=== PATIENT | male | born 1970 | race Caucasian/White ===

== ENCOUNTER 2017-01-08 15:51 | Outpatient (CLI) | payer MEDICARE, MEDICAID | END 2017-01-08 15:52 | disposition critical access hospital (66) | DX: M25.561 Pain in right knee (principal); W18.30XA Fall on same level, unspecified, initial encounter | CPT/HCPCS: A0425; A0429 ==

== ENCOUNTER 2017-01-08 16:27 | Emergency (ER) | payer MEDICARE, MEDICAID ==
[2017-01-08] MEDS ORDERED: IBUPROFEN 800 MG TABLET PO STA (17:05)
[2017-01-08] MEDS ORDERED: oxyCOD/ACETAMIN 5 MG/325 MG TABLET PO STA (17:05)
[2017-01-08] MEDS ORDERED: oxyCOD/ACETAMIN 5 MG/325 MG TABLET PO ONE ×2 (17:23→17:40)
[2017-01-08] MEDS ORDERED: IBUPROFEN 800 MG TABLET PO ONE (17:24)
== END 2017-01-08 19:30 | disposition home or self-care (01) ==
DX: S80.01XA Contusion of right knee, initial encounter (principal); W01.0XXA Fall on same level from slipping, tripping and stumbling without subsequent striking against object, initial encounter; Y92.488 Other paved roadways as the place of occurrence of the external cause; I10 Essential (primary) hypertension; G47.30 Sleep apnea, unspecified; Z87.442 Personal history of urinary calculi
CPT/HCPCS: 73564; 73590; 99283; 99284; A9270

== ENCOUNTER 2017-05-18 10:39 | Outpatient (CLI) | payer MEDICARE, MEDICAID | END 2017-05-18 10:40 | disposition home or self-care (01) | LOC: SC 10:39 | PROVIDERS: ATTEND Internal Medicine Pulmonary Disease | DX: G47.33 Obstructive sleep apnea (adult) (pediatric) (principal) | CPT/HCPCS: 99213; G0463; 99212 ==

== ENCOUNTER 2017-06-23 10:18 | Outpatient (CLI) | payer MEDICARE, MEDICAID | END 2017-06-23 10:19 | disposition home or self-care (01) | LOC: SC 10:18 | PROVIDERS: ATTEND Internal Medicine Pulmonary Disease | DX: G47.33 Obstructive sleep apnea (adult) (pediatric) (principal) | CPT/HCPCS: 99213; G0463; 99212 ==

== ENCOUNTER 2017-08-06 22:56 | Outpatient (CLI) | payer MEDICARE, MEDICAID | END 2017-08-06 22:57 | disposition home or self-care (01) | LOC: SC 22:56 | PROVIDERS: ATTEND Internal Medicine Pulmonary Disease | DX: G47.33 Obstructive sleep apnea (adult) (pediatric) (principal); G47.61 Periodic limb movement disorder; Z68.42 Body mass index [BMI] 45.0-49.9, adult | CPT/HCPCS: 95811 ==

== ENCOUNTER 2017-08-25 10:26 | Outpatient (CLI) | payer MEDICARE, MEDICAID | END 2017-08-25 10:27 | disposition home or self-care (01) | LOC: SC 10:26 | PROVIDERS: ATTEND Internal Medicine Pulmonary Disease | DX: G47.33 Obstructive sleep apnea (adult) (pediatric) (principal) | CPT/HCPCS: 99213; G0463; 99212 ==

== ENCOUNTER 2017-12-14 13:51 | Outpatient (CLI) | payer MEDICARE, MEDICAID | END 2017-12-14 13:52 | disposition home or self-care (01) | LOC: SC 13:51 | PROVIDERS: ATTEND Internal Medicine Pulmonary Disease | DX: G47.33 Obstructive sleep apnea (adult) (pediatric) (principal) | CPT/HCPCS: 99213; G0463; 99212 ==

== ENCOUNTER 2018-01-25 08:00 | Outpatient (CLI) | payer MEDICARE, MEDICAID ==
[2018-01-25 17:50] LABS: BASOPHILS % (AUTO) 0.4 %; EOSINOPHILS # (AUTO) 0.2 10^3/uL (0.0-0.7); EOSINOPHILS % (AUTO) 2.9 %; HGB - HEMOGLOBIN 16.2 g/dL (14.0-18.0); LYMPHOCYTES # (AUTO) 2.4 10^3/uL (1.5-3.5); LYMPHOCYTES % (AUTO) 29.4 %; MEAN CORPUSCULAR HEMOGLOBIN 28.8 pg (27.0-31.0); MEAN CORPUSCULAR HGB CONC 33.2 g/dL (32.0-36.0); MEAN CORPUSCULAR VOLUME 86.9 fL (80.0-94.0); MEAN PLATELET VOLUME 8.6 fL (7.4-11.4); MONOCYTES # (AUTO) 0.9 10^3/uL (0.0-1.0); MONOCYTES % (AUTO) 10.6 %; NEUTROPHILS # (AUTO) 4.6 10^3/uL (1.5-6.6); NEUTROPHILS % (AUTO) 56.7 %; PLT - PLATELET COUNT 198 10^3/uL (130-450); RED BLOOD COUNT 5.63 10^6/uL (4.70-6.10); RED CELL DISTRIBUTION WIDTH 12.9 % (12.0-15.0); WHITE BLOOD COUNT 8.1 x10^3/uL (4.8-10.8)
[2018-01-25 18:13] LABS: ALBUMIN 4.2 g/dL (3.2-5.5); ALBUMIN/GLOBULIN RATIO 1.3 (1.0-2.2); BILIRUBIN,TOTAL 0.4 mg/dL (0.2-1.0); CALCIUM 8.9 mg/dL (8.5-10.3); CREATININE 0.9 mg/dL (0.6-1.2); TOTAL PROTEIN 7.4 g/dL (6.7-8.2)
== END 2018-01-25 23:59 ==
LOC: LAB.S 08:00
PROVIDERS: ATTEND Nurse Practitioner Family
DX: R10.9 Unspecified abdominal pain (principal)
CPT/HCPCS: 36415; 80053; 85025

== ENCOUNTER 2018-01-27 10:45 | Outpatient (CLI) | payer MEDICARE, MEDICAID | END 2018-01-27 10:46 | disposition home or self-care (01) | LOC: LAB.R 10:45 | PROVIDERS: ATTEND Nurse Practitioner Family | DX: R10.9 Unspecified abdominal pain (principal) | CPT/HCPCS: 83630 ==

== ENCOUNTER 2018-02-04 09:13 | Outpatient (CLI) | payer MEDICARE, MEDICAID ==
--- NOTE | 2018-02-04 11:27 | Ultrasound Report ---
ULTRASOUND ABDOMINAL WALL: 02/04/2018 CLINICAL INDICATION: Abdominal wall pain, question hernia. TECHNIQUE: Real-time scanning was performed with community service representative static images obtained. FINDINGS: At the time of the examination, the patient could not localize the pain, describing it as diffuse throughout his anterior abdominal wall. No hernia is appreciated in scanning of the four quadrants. IMPRESSION: NO EVIDENCE OF ABDOMINAL WALL HERNIA. TD: 02/04/2018 11:26
== END 2018-02-04 09:14 | disposition home or self-care (01) ==
LOC: DI 09:13
PROVIDERS: ATTEND Nurse Practitioner Family
DX: R10.9 Unspecified abdominal pain (principal)
CPT/HCPCS: 76705

== ENCOUNTER 2018-02-19 16:07 | Outpatient (CLI) | payer MEDICARE, MEDICAID | END 2018-02-19 16:08 | disposition short-term general hospital (02) | LOC: EMS 16:07 | PROVIDERS: ATTEND Surgery | DX: R07.9 Chest pain, unspecified (principal); R06.02 Shortness of breath; R42 Dizziness and giddiness | CPT/HCPCS: A0170; A0425; A0427 ==

== ENCOUNTER 2018-06-21 11:23 | Emergency (ER) | payer MEDICARE, MEDICAID ==
--- NOTE | 2018-06-21 13:02 | XRAY Report ---
Reason: hand inj Procedure Date: 06/21/2018 Accession Number: [id number] / [id number] Procedure: XR - Hand 3 View LT CPT Code: FULL RESULT: EXAM: LEFT HAND RADIOGRAPHY EXAM DATE: 06/21/2018 12:46 PM. CLINICAL HISTORY: Hand injury. COMPARISON: HAND 3 VIEW RT 10/19/2014. TECHNIQUE: 3 views. FINDINGS: Bones: Normal. No fractures or bone lesions. Joints: Normal. No subluxations. Soft Tissues: Normal. No soft tissue swelling. IMPRESSION: No fracture or dislocation is identified. RADIA
--- NOTE | 2018-06-21 15:11 | ED Physician Documentation ---
History of Present Illness - Stated complaint Stated Complaint: L THUMB INJ/BACK PX - Chief complaint Chief Complaint: Trauma Ext - History obtained from History obtained from: Patient (using [employer] healthcare interpreter for ASL [id number]) - History of Present Illness Timing: Other (He has 2 issues one he has ongoing back pain for last 2 months. It is a history of low back pain. He points to the left sciatic notch as the source. He denies weakness, numbness, or tingling. He had been in physical therapy which helped quite a bit but the prescription for that ran out. He also has a back brace and needs a new one. Secondly he fell last night injuring the base of the left thumb. He has a lot of pain right at the base of the left thumb. No other injuries from that fall.) Review of Systems Constitutional: denies: Fever, Chills Respiratory: reports: Reviewed and negative GI: reports: Reviewed and negative PD PAST MEDICAL HISTORY - Past Medical History Cardiovascular: Hypertension Respiratory: Sleep apnea, CPAP use Neuro: None Endocrine/Autoimmune: None GI: None : Kidney stones HEENT: Chronic hearing loss Psych: None Musculoskeletal: Chronic back pain, Other Derm: Eczema - Past Surgical History Past Surgical History: Yes General: Cholecystectomy, Other Ortho: Carpal Tunnel surgery HEENT: Myringotomy (tubes) - Present Medications Home Medications: Ambulatory Orders Medication Instructions Recorded Confirmed Ibuprofen [Motrin] 800 mg PO Q8H PRN #30 tablet 01/08/17 Ascorbic Acid [Vitamin C with Malena 1 tab PO DAILY 06/21/18 06/21/18 Hips] Hydrocodone/Acetaminophen 1 - 2 each PO Q6H PRN #14 tablet 06/21/18 [Hydrocodon-Acetaminophen 5-325] Physical Therapy 1 unit TD ONCE #1 06/21/18 - Allergies Allergies/Adverse Reactions: Allergies Allergy/AdvReac Type Severity Reaction Status Date / Time cefaclor [From Ceclor] Allergy Unknown Rash Verified 06/21/18 14:36 codeine [Codeine] Allergy Unknown unknown Verified 06/21/18 14:36 Sulfa (Sulfonamide Allergy Unknown unknown Verified 06/21/18 14:36 Antibiotics) - Social History Does the pt smoke?: No Smoking Status: Never smoker Does the pt drink ETOH?: No Does the pt have substance abuse?: No Substance Use and Type: Marijuana - Immunizations Immunizations are current?: No Immunizations: TDAP >10years/unknown - POLST Patient has POLST: No PD ED PE NORMAL - Vitals Vital signs reviewed: Yes - General General: Alert and oriented X 3, No acute distress - Back Back: No CVA TTP, No spinal TTP (But he is tender near the left sciatic notch), Other (The patient has equal and normal Achilles and patellar reflexes bilaterally. Normal sensation in all areas of the legs. Patient denies saddle anesthesia. Normal strength in flexion-extension at the ankles, knees, and flexion of the hips.) - Extremities Extremities: Other (Tender at the base of the left thumb at the MCP joint. No snuffbox or proximal wrist tenderness. Good range of motion.) - Neuro Neuro: Alert and oriented X 3, Normal speech Results - Vitals Vitals: Vital Signs - 24 hr 06/21/18 11:34 Temperature 35.9 C L Heart Rate 66 Respiratory 18 Rate Blood Pressure 126/65 O2 Saturation 97 Oxygen O2 Source Room air - Rads (name of study) L hand 3v Radiology: EMP read contemporaneously (no frx) PD MEDICAL DECISION MAKING - Sepsis Event Vital Signs: Vital Signs - 24 hr 06/21/18 11:34 Temperature 35.9 C L Heart Rate 66 Respiratory 18 Rate Blood Pressure 126/65 O2 Saturation 97 Oxygen O2 Source Room air Departure - Departure Disposition: 01 Home, Self Care Clinical Impression: Back pain Qualifiers: Back pain location: low back pain Chronicity: chronic Back pain laterality: left Sciatica presence: without sciatica Qualified Code(s): M54.5 - Low back pain; G89.29 - Other chronic pain Left thumb sprain Qualifiers: Encounter type: initial encounter Sprain of finger site: metacarpophalangeal joint Qualified Code(s): S63.642A - Sprain of metacarpophalangeal joint of left thumb, initial encounter Condition: Good Record reviewed to determine appropriate education?: Yes Instructions: ED Neck Back Pain General Follow-Up: Annamaria Gomez ARNP [Primary Care Provider] - Prescriptions: Hydrocodone/Acetaminophen [Hydrocodon-Acetaminophen 5-325] 1 - 2 each PO Q6H PRN #14 tablet PRN Reason: pain Physical Therapy 1 unit TD ONCE #1
[2018-06-21 16:03] VITALS: BP 129/78
== END 2018-06-21 16:02 | disposition home or self-care (01) ==
LOC: ED 11:23
DX: S63.642A Sprain of metacarpophalangeal joint of left thumb, initial encounter (principal); I10 Essential (primary) hypertension; G89.29 Other chronic pain; M54.5 Low back pain; W10.9XXA Fall (on) (from) unspecified stairs and steps, initial encounter
CPT/HCPCS: 99283

== ENCOUNTER 2018-07-18 16:04 | Emergency (ER) | payer MEDICARE, MEDICAID ==
--- NOTE | 2018-07-18 17:14 | ED Physician Documentation ---
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 Pain is radiating to low abd both sides the past 2 weeks as well.) Timing - duration: Weeks (2) Timing - details: Gradual onset, Still present, Waxing and waning Quality: Aching, Pain Location: Other (bilatreral low back radiating around to low abd both sides.) Improved by: Laying still. No: Eating Worsened by: Moving, Position. No: Eating Associated symptoms: No: Fever, Nausea, Vomiting, Diarrhea, Chest pain, Near syncope / syncope, Loss of appetite Similar symptoms before: Has not had sx before Recently seen: Not recently seen Review of Systems Constitutional: denies: Fever, Chills Nose: denies: Rhinorrhea / runny nose, Congestion Throat: denies: Sore throat Cardiac: denies: Chest pain / pressure, Palpitations Respiratory: denies: Cough GI: reports: Abdominal Pain, Abdominal Swelling, Constipation (firm stools). denies: Nausea, Vomiting, Diarrhea : denies: Dysuria, Frequency Skin: denies: Rash PD PAST MEDICAL HISTORY - Past Medical History Past Medical History: Yes Cardiovascular: Hypertension Respiratory: Sleep apnea, CPAP use Neuro: None Endocrine/Autoimmune: None GI: None : Kidney stones HEENT: Chronic hearing loss Psych: None Musculoskeletal: Chronic back pain, Other Derm: Eczema - Past Surgical History Past Surgical History: Yes General: Cholecystectomy, Other Ortho: Carpal Tunnel surgery HEENT: Myringotomy (tubes) - Present Medications Home Medications: Ambulatory Orders Medication Instructions Recorded Confirmed Ibuprofen [Motrin] 800 mg PO Q8H PRN #30 tablet 01/08/17 Ascorbic Acid [Vitamin C with Malena 1 tab PO DAILY 06/21/18 06/21/18 Hips] Hydrocodone/Acetaminophen 1 - 2 each PO Q6H PRN #14 tablet 06/21/18 [Hydrocodon-Acetaminophen 5-325] Physical Therapy 1 unit TD ONCE #1 06/21/18 Dexamethasone [Decadron] 4 mg PO DAILY #5 tablet 07/18/18 Gabapentin 300 mg PO BID #30 capsule 07/18/18 Morphine Ir [Ms Ir] 15 mg PO TID PRN #25 tablet 07/18/18 - Allergies Allergies/Adverse Reactions: Allergies Allergy/AdvReac Type Severity Reaction Status Date / Time cefaclor [From Ceclor] Allergy Unknown Rash Verified 07/18/18 16:52 codeine [Codeine] Allergy Unknown unknown Verified 07/18/18 16:52 Sulfa (Sulfonamide Allergy Unknown unknown Verified 07/18/18 16:52 Antibiotics) - Social History Does the pt smoke?: No Smoking Status: Never smoker Does the pt drink ETOH?: No Does the pt have substance abuse?: No - Immunizations Immunizations are current?: No Immunizations: TDAP >10years/unknown - POLST Patient has POLST: No PD ED PE NORMAL - Vitals Vital signs reviewed: Yes - General General: Alert and oriented X 3, No acute distress, Well developed/nourished - HEENT HEENT: Pharynx benign - Neck Neck: Supple, no meningeal sign, No adenopathy - Cardiac Cardiac: RRR, No murmur - Respiratory Respiratory: Clear bilaterally - Abdomen Abdomen: Normal bowel sounds, Soft, Non distended, No organomegaly, Other (some tender without guarding nor rebound bilateral lower abd. No hernias nor skin sores. ) - Male Male : Deferred - Rectal Rectal: Deferred - Back Back: No CVA TTP - Derm Derm: Normal color, Warm and dry - Extremities Extremities: No tenderness to palpate, Normal ROM s pain, No edema, Other - Neuro Neuro: Alert and oriented X 3, No motor deficit Results - Vitals Vitals: Oxygen O2 Source Room air - Labs Labs: Laboratory Tests 07/18/18 07/18/18 07/18/18 17:30 17:30 17:30 WBC 8.1 RBC 5.52 Hgb 16.8 Hct 48.2 MCV 87.3 MCH 30.4 MCHC 34.8 RDW 13.0 Plt Count 208 MPV 7.9 Neut # (Auto) 5.0 Lymph # (Auto) 2.0 [place] # (Auto) 0.8 Eos # (Auto) 0.2 Baso # (Auto) 0.1 Absolute Nucleated RBC 0.01 Nucleated RBC % 0.2 ESR 1 Sodium 135 Potassium 4.0 Chloride 100 L Carbon Dioxide 29 Anion Gap 6.0 BUN 13 Creatinine 0.8 Estimated GFR (MDRD) 103 Glucose 101 H Calcium 8.9 Total Bilirubin 0.6 AST 30 ALT 46 Alkaline Phosphatase 50 Total Protein 7.3 Albumin 4.1 Globulin 3.2 Albumin/Globulin Ratio 1.3 Lipase 135 H Urine Color Urine Clarity Urine pH Ur Specific [place] Urine Protein Urine Glucose (UA) Urine Ketones Urine Occult Blood Urine Nitrite Urine Bilirubin Urine Urobilinogen Ur Leukocyte Esterase Ur Microscopic Review Urine Culture Comments 07/18/18 17:45 WBC RBC Hgb Hct MCV MCH MCHC RDW Plt Count MPV Neut # (Auto) Lymph # (Auto) [place] # (Auto) Eos # (Auto) Baso # (Auto) Absolute Nucleated RBC Nucleated RBC % ESR Sodium Potassium Chloride Carbon Dioxide Anion Gap BUN Creatinine Estimated GFR (MDRD) Glucose Calcium Total Bilirubin AST ALT Alkaline Phosphatase Total Protein Albumin Globulin Albumin/Globulin Ratio Lipase Urine Color YELLOW Urine Clarity CLEAR Urine pH 6.5 Ur Specific [place] 1.025 Urine Protein NEGATIVE Urine Glucose (UA) NEGATIVE Urine Ketones NEGATIVE Urine Occult Blood NEGATIVE Urine Nitrite NEGATIVE Urine Bilirubin NEGATIVE Urine Urobilinogen 0.2 (NORMAL) Ur Leukocyte Esterase NEGATIVE Ur Microscopic Review NOT INDICATED Urine Culture Comments NOT INDICATED - Rads (name of study) abd CT Radiology: Prelim report reviewed (stones in kidneys; no ureteral stones. No other acute process. Spine bones without noted deformity. ), EMP read contemporaneously PD MEDICAL DECISION MAKING - ED course Complexity details: reviewed results (no acute process on CT; presume musc uloskeletal back pain with some perhaps constipation or intestinal pain. ), re- evaluated patient (improved with pain meds. ), considered differential, d/w patient Departure - Departure Disposition: Home, Self Care Clinical Impression: Lower abdominal pain Low back pain Qualifiers: Chronicity: chronic Back pain laterality: bilateral Sciatica presence: without sciatica Qualified Code(s): M54.5 - Low back pain Condition: Stable Record reviewed to determine appropriate education?: Yes Instructions: ED Low Back Pain Injury Follow-Up: Annamaria Gomez ARNP [Primary Care Provider] - Prescriptions: Dexamethasone [Decadron] 4 mg PO DAILY #5 tablet Gabapentin 300 mg PO BID #30 capsule Morphine Ir [Ms Ir] 15 mg PO TID PRN #25 tablet PRN Reason: Pain Comments: Your CT scan did not show any obvious cause for the back and belly pain. You have some small stones in the kidney but no stones in a position to cause pain. The spine appears normal based on the CT scan. Sometimes an MRI can be better at looking at some of the nerve roots or discs but at this point there is no significant deformity. We will presume its muscular and nerve pain from the back and we can change your pain medicine to morphine 3 times a day and add some anti-inflammatory Decadron for 5 days. Also gabapentin tries to reduce nerve irritation pain and take that twice daily. Follow-up with your primary care next week, call for an appointment. Discharge Date/Time: 07/18/18 20:35
[2018-07-18] MEDS ORDERED: HYDROmorphone 1 MG/ML CARPUJECT IVP STA ×2 (17:15→19:04)
[2018-07-18] MEDS ORDERED: KETOROLAC 60 MG/2 ML VIAL IVP STA (17:16)
[2018-07-18 17:44] LABS: BASOPHILS # (AUTO) 0.1 10^3/uL (0.0-0.1); BASOPHILS % (AUTO) 0.6 %; EOSINOPHILS # (AUTO) 0.2 10^3/uL (0.0-0.7); EOSINOPHILS % (AUTO) 2.3 %; HGB - HEMOGLOBIN 16.8 g/dL (14.0-18.0); LYMPHOCYTES % (AUTO) 25.1 %; MEAN CORPUSCULAR HEMOGLOBIN 30.4 pg (27.0-31.0); MEAN CORPUSCULAR HGB CONC 34.8 g/dL (32.0-36.0); MEAN CORPUSCULAR VOLUME 87.3 fL (80.0-94.0); MEAN PLATELET VOLUME 7.9 fL (7.4-11.4); MONOCYTES # (AUTO) 0.8 10^3/uL (0.0-1.0); MONOCYTES % (AUTO) 10.3 %; NEUTROPHILS % (AUTO) 61.7 %; PLT - PLATELET COUNT 208 10^3/uL (130-450); RED BLOOD COUNT 5.52 10^6/uL (4.70-6.10); WHITE BLOOD COUNT 8.1 x10^3/uL (4.8-10.8)
[2018-07-18 17:57] LABS: ALBUMIN 4.1 g/dL (3.2-5.5); ALBUMIN/GLOBULIN RATIO 1.3 (1.0-2.2); BILIRUBIN,TOTAL 0.6 mg/dL (0.2-1.0); CALCIUM 8.9 mg/dL (8.5-10.3); CREATININE 0.8 mg/dL (0.6-1.2); TOTAL PROTEIN 7.3 g/dL (6.7-8.2)
[2018-07-18 18:00] LABS: BILIRUBIN,URINE NEGATIVE (NEGATIVE); GLUCOSE, URINE (UA) NEGATIVE (NEGATIVE); KETONES,URINE (UA) NEGATIVE (NEGATIVE); LEUKOCYTE ESTERASE, URINE NEGATIVE (NEGATIVE); NITRITE,URINE NEGATIVE (NEGATIVE); OCCULT BLOOD,URINE NEGATIVE (NEGATIVE); PH,URINE 6.5 PH (5.0-7.5); PROTEIN,URINE NEGATIVE (NEGATIVE); UROBILINOGEN,URINE 0.2 (NORMAL) E.U./dL (NORMAL)
[2018-07-18] MEDS ORDERED: IOPAMIDOL-300 100 ML VIAL ONE (18:05)
[2018-07-18 18:08] LABS: CLARITY,URINE CLEAR (CLEAR)
[2018-07-18] MEDS ORDERED: IOPAMIDOL-300 100 ML VIAL IVP ONE (18:44)
[2018-07-18] MEDS ORDERED: DEXAMETHASONE 10 MG/ML VIAL IVP STA (19:04)
--- NOTE | 2018-07-18 19:09 | CT Report ---
Reason: low back/left abd pain Procedure Date: 07/18/2018 Accession Number: [id number] / [id number] Procedure: CT - Abdomen/Pelvis W/ CPT Code: FULL RESULT: EXAM: CT ABDOMEN AND PELVIS EXAM DATE: 07/18/2018 06:32 PM. CLINICAL HISTORY: Low back/left abd pain. COMPARISONS: 100 cc Isovue-300 IV. TECHNIQUE: Routine helical CT imaging was performed through the abdomen and pelvis. IV contrast: 100 cc Isovue-300 IV. Enteric contrast: No. Reconstructions: Coronal and sagittal. In accordance with CT protocol optimization, one or more of the following dose reduction techniques were utilized for this exam: automated exposure control, adjustment of mA and/or KV based on patient size, or use of iterative reconstructive technique. FINDINGS: Lung Bases: Unremarkable. Liver: Liver parenchyma mildly low in density. No focal liver mass. Gallbladder/Bile Ducts: Gallbladder surgically absent. Spleen: Normal. Pancreas: Normal. Adrenal Glands: Normal. Kidneys: There are multiple nonobstructing right kidney stones the largest stone in the upper pole measures 6 mm in diameter. There is no hydronephrosis. No ureter stone. Peritoneal Cavity/Bowel: Normal. No free fluid, free air or adenopathy. No masses or acute inflammatory process. The appendix is well visualized and normal. Pelvic Organs: Normal. The bladder and visualized pelvic organs are within normal limits. Vasculature: No aneurysms or other significant abnormality. Bones: No significant abnormality. Other: None. IMPRESSION: 1. Multiple nonobstructing right kidney stones, largest 6 mm. 2. No localizing acute inflammatory process. 3. Normal appendix. 4. Mild steatosis of the liver. RADIA
[2018-07-18] MEDS ORDERED: oxyCODONE/ACET 5/325 Prepack 4 PO STA (20:01)
[2018-07-18 20:36] VITALS: BP 120/89
== END 2018-07-18 20:35 | disposition home or self-care (01) ==
LOC: ED 16:04
DX: R10.30 Lower abdominal pain, unspecified (principal); M54.5 Low back pain; I10 Essential (primary) hypertension
CPT/HCPCS: 36415; 74177; 80053; 81003; 83690; 85025; 85651; 96374; 96375; 96376; 99283; 99284; J1170; Q9967; 81001; 87086

== ENCOUNTER 2018-10-04 09:49 | Outpatient (CLI) | payer MEDICARE, MEDICAID | END 2018-10-04 09:50 | disposition home or self-care (01) | LOC: SC 09:49 | PROVIDERS: ATTEND Internal Medicine Pulmonary Disease | DX: G47.33 Obstructive sleep apnea (adult) (pediatric) (principal) | CPT/HCPCS: 99213; G0463; 99212 ==

== ENCOUNTER 2018-10-26 16:24 | Emergency (ER) | payer MEDICARE, MEDICAID ==
[2018-10-26] MEDS ORDERED: AMOX/CLAV 875 MG/125 MG TABLET PO STA (17:46)
[2018-10-26] MEDS ORDERED: HYDROcod/ACETAM 5/325 MG TABLET PO STA (17:46)
--- NOTE | 2018-10-26 17:49 | ED Physician Documentation ---
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 He also complains of left ear pain with some bloody drainage. No fevers.) Review of Systems Constitutional: denies: Fever, Chills Ears: reports: Loss of hearing (He is chronically deaf), Ear pain Nose: denies: Rhinorrhea / runny nose Throat: reports: Dental pain / toothache. denies: Sore throat PD PAST MEDICAL HISTORY - Past Medical History Past Medical History: No Cardiovascular: Hypertension Respiratory: Sleep apnea, CPAP use Neuro: None Endocrine/Autoimmune: None GI: None : Kidney stones HEENT: Chronic hearing loss Psych: None Musculoskeletal: Chronic back pain, Other Derm: Eczema - Past Surgical History Past Surgical History: Yes General: Cholecystectomy, Other Ortho: Carpal Tunnel surgery HEENT: Myringotomy (tubes) - Present Medications Home Medications: Ambulatory Orders Medication Instructions Recorded Confirmed Ibuprofen [Motrin] 800 mg PO Q8H PRN #30 tablet 01/08/17 Ascorbic Acid [Vitamin C with Malena 1 tab PO DAILY 06/21/18 06/21/18 Hips] Hydrocodone/Acetaminophen 1 - 2 each PO Q6H PRN #14 tablet 06/21/18 [Hydrocodon-Acetaminophen 5-325] Physical Therapy 1 unit TD ONCE #1 06/21/18 Dexamethasone [Decadron] 4 mg PO DAILY #5 tablet 07/18/18 Gabapentin 300 mg PO BID #30 capsule 07/18/18 Morphine Ir [Ms Ir] 15 mg PO TID PRN #25 tablet 07/18/18 Amox/Clav 875/125 [Augmentin] 1 each PO Q12H #20 tablet 09/11/18 Oxycodone HCl/Acetaminophen 1 - 2 each PO Q6H PRN #14 tablet 09/11/18 [Percocet 5-325 mg Tablet] carBAMazepine [TEGretol] 100 mg PO BID #20 tablet 09/11/18 Amox/Clav 875/125 [Augmentin] 1 each PO Q12H #20 tablet 10/26/18 Hydrocodone/Acetaminophen 1 - 2 each PO Q6H PRN #20 tablet 10/26/18 [Hydrocodon-Acetaminophen 5-325] - Allergies Allergies/Adverse Reactions: Allergies Allergy/AdvReac Type Severity Reaction Status Date / Time cefaclor [From Ceclor] Allergy Unknown Rash Verified 07/18/18 16:52 codeine [Codeine] Allergy Unknown unknown Verified 07/18/18 16:52 Sulfa (Sulfonamide Allergy Unknown unknown Verified 07/18/18 16:52 Antibiotics) - Social History Does the pt smoke?: No Smoking Status: Never smoker Does the pt drink ETOH?: No Does the pt have substance abuse?: No - Immunizations Immunizations are current?: No Immunizations: TDAP >10years/unknown - POLST Patient has POLST: No PD ED PE NORMAL - Vitals Vital signs reviewed: Yes - General General: Alert and oriented X 3, No acute distress - HEENT HEENT: Other (Bilateral otitis media which is severe on the left. He has a tender left mandibular premolar without swelling or trismus or sublingual edema.) - Neck Neck: Supple, no meningeal sign, No bony TTP - Neuro Neuro: Alert and oriented X 3, Normal speech Results - Vitals Vitals: Vital Signs - 24 hr 10/26/18 16:30 Temperature 36 C L Heart Rate 73 Respiratory 18 Rate Blood Pressure 163/89 H O2 Saturation 96 Oxygen O2 Source Room air Departure - Departure Disposition: 01 Home, Self Care Clinical Impression: Dental abscess Bilateral otitis media Qualifiers: Otitis media type: suppurative Chronicity: acute Recurrence: not specified as recurrent Spontaneous tympanic membrane rupture: without spontaneous rupture Qualified Code(s): H66.003 - Acute suppurative otitis media without spontaneous rupture of ear drum, bilateral Condition: Good Record reviewed to determine appropriate education?: Yes Instructions: ED Otitis Media Acute Adult, ED Cavity Dental Prescriptions: Amox/Clav 875/125 [Augmentin] 1 each PO Q12H #20 tablet Hydrocodone/Acetaminophen [Hydrocodon-Acetaminophen 5-325] 1 - 2 each PO Q6H PRN #20 tablet PRN Reason: pain Comments: Follow-up with your dentist as scheduled. Return if worse. Also follow-up with your primary care physician in 1 week for recheck on your ears. Your blood pressure was elevated today on check into the emergency department. This does not mean that you have hypertension, it is a common phenomenon to come to the emergency department and have elevated blood pressure. I recommend that you see your primary care physician within the week to have it rechecked when you are feeling better. Do not drink or drive while taking narcotic pain medication. Note that many narcotic pain relievers also contain Tylenol/acetaminophen. Please ensure that your total dose of acetaminophen from all sources does not exceed 3 g (3000 mg) per day. You may get constipated while on this medication. Take a stool softener such as Colace twice a day while you are on it. Also add an [id number] laxative such as senna or MiraLAX on any day that you do not have a bowel movement. If you received a narcotic pain medication or sedative while in the emergency department, do not drive for the next 24 hours.
[2018-10-26 18:11] VITALS: BP 146/98
== END 2018-10-26 18:12 | disposition home or self-care (01) ==
LOC: ED 16:24
DX: K04.7 Periapical abscess without sinus (principal); H66.003 Acute suppurative otitis media without spontaneous rupture of ear drum, bilateral; I10 Essential (primary) hypertension
CPT/HCPCS: 99283; A9270

== ENCOUNTER 2019-01-09 15:38 | Emergency (ER) | payer MEDICARE, MEDICAID ==
[2019-01-09 15:50] VITALS: BP 149/75
--- NOTE | 2019-01-09 16:17 | ED Physician Documentation ---
PD HPI SKIN - Stated complaint Stated Complaint: SKIN TAG ON NECK - Chief complaint Chief Complaint: Wound - History obtained from History obtained from: Patient - History of Present Illness Timing - onset: Yesterday Timing - duration: Days (2) Timing - details: Gradual onset, Still present (worse today) Location: Neck (left neck with swelling, redness, tenderness of prior residential skin tag. Onset yesterday and worse today.) Quality / character: Painful, Discolored (red), Swelling. No: Draining Associated symptoms: No: Fever, Myalgias Similar symptoms before: Has not had sx before Review of Systems Constitutional: denies: Fever, Chills, Myalgias GI: denies: Nausea, Vomiting Skin: denies: Rash PD PAST MEDICAL HISTORY - Past Medical History Cardiovascular: Hypertension Respiratory: Sleep apnea, CPAP use Neuro: None Endocrine/Autoimmune: None GI: None : Kidney stones HEENT: Chronic hearing loss Psych: None Musculoskeletal: Chronic back pain, Other Derm: Eczema - Past Surgical History Past Surgical History: Yes General: Cholecystectomy, Other Ortho: Carpal Tunnel surgery HEENT: Myringotomy (tubes) - Present Medications Home Medications: Ambulatory Orders Medication Instructions Recorded Confirmed Ibuprofen [Motrin] 800 mg PO Q8H PRN #30 tablet 01/08/17 Ascorbic Acid [Vitamin C with Malena 1 tab PO DAILY 06/21/18 06/21/18 Hips] Hydrocodone/Acetaminophen 1 - 2 each PO Q6H PRN #14 tablet 06/21/18 [Hydrocodon-Acetaminophen 5-325] Physical Therapy 1 unit TD ONCE #1 06/21/18 Dexamethasone [Decadron] 4 mg PO DAILY #5 tablet 07/18/18 Gabapentin 300 mg PO BID #30 capsule 07/18/18 Morphine Ir [Ms Ir] 15 mg PO TID PRN #25 tablet 07/18/18 Amox/Clav 875/125 [Augmentin] 1 each PO Q12H #20 tablet 09/11/18 Oxycodone HCl/Acetaminophen 1 - 2 each PO Q6H PRN #14 tablet 09/11/18 [Percocet 5-325 mg Tablet] carBAMazepine [TEGretol] 100 mg PO BID #20 tablet 09/11/18 Amox/Clav 875/125 [Augmentin] 1 each PO Q12H #20 tablet 10/26/18 Hydrocodone/Acetaminophen 1 - 2 each PO Q6H PRN #20 tablet 10/26/18 [Hydrocodon-Acetaminophen 5-325] Doxycycline Hyclate 100 mg PO BID #10 capsule 01/09/19 Mupirocin 1 applic TP TID #15 g 01/09/19 - Allergies Allergies/Adverse Reactions: Allergies Allergy/AdvReac Type Severity Reaction Status Date / Time cefaclor [From Ceclor] Allergy Unknown Rash Verified 01/09/19 15:50 codeine [Codeine] Allergy Unknown unknown Verified 01/09/19 15:50 Sulfa (Sulfonamide Allergy Unknown unknown Verified 01/09/19 15:50 Antibiotics) - Social History Does the pt smoke?: No Smoking Status: Never smoker Does the pt drink ETOH?: No Does the pt have substance abuse?: No - Immunizations Immunizations are current?: No Immunizations: TDAP >10years/unknown - POLST Patient has POLST: No PD ED PE NORMAL - Vitals Vital signs reviewed: Yes - General General: Alert and oriented X 3, No acute distress, Well developed/nourished - Neck Neck: Supple, no meningeal sign, No adenopathy - Derm Derm: Normal color, Warm and dry, Other (patient with many small skin tags around sides and back of neck. Left side of neck with a single one that is swollen to size of 1.5 cm with redness, tenderness, and slight redness at base. There is some hair near base of it, so may have originated as hair strangulation of it, but appears infected now as well. No purulence. ) Results - Vitals Vitals: Vital Signs - 24 hr 01/09/19 15:49 Temperature 36.7 C Heart Rate 81 Respiratory 17 Rate Blood Pressure 149/75 H O2 Saturation 99 Oxygen O2 Source Room air Procedures - General procedure General procedure: Swollen/tender skin tag without any melanotic color changes. Local lido 1% with epi used around base and scalpel used to make ellipse along skin line and tag removed. Skin closed with 5-0 nylon running suture with good closure. PD MEDICAL DECISION MAKING - ED course Complexity details: considered differential (swollen and tender skin tag left neck, with apparent hair around base but also with redness extending proximal to that too, so appears infected. Most direct method seems removal and patient prefers that. The lesion was excised without problems. ), d/w patient Departure - Departure Disposition: 01 Home, Self Care Clinical Impression: Skin tag, Skin infection Condition: Stable Record reviewed to determine appropriate education?: Yes Prescriptions: Doxycycline Hyclate 100 mg PO BID #10 capsule Mupirocin 1 applic TP TID #15 g Comments: It is okay to wash and shower. Clean off the wound twice a day with soap and water, or peroxide and water. Apply some antibiotic ointment to it to keep it moist. Also to watch for signs of infection such as purulence, redness or increasing pain. Return to your primary care or the ER at the specified time for suture removal. Suture removal 8-10 days. This looks like an infected skin tag. Removing it gets rid of the main problem. Will use some antibiotics topically and orally for concern of some infection at the base of it. Discharge Date/Time: 01/09/19 17:12
[2019-01-09] MEDS ORDERED: MUPIROCIN 2% OINT 1 GM TOP STA (17:03)
[2019-01-09] MEDS ORDERED: DOXYCYCLINE 100 MG TABLET PO STA (17:03)
== END 2019-01-09 17:12 | disposition home or self-care (01) ==
LOC: ED 15:38
DX: L91.8 Other hypertrophic disorders of the skin (principal); L08.9 Local infection of the skin and subcutaneous tissue, unspecified; I10 Essential (primary) hypertension
CPT/HCPCS: 11200; 99283; A9270

== ENCOUNTER → 2019-04-28 | Outpatient (CLI) | payer MEDICARE, MEDICAID | LOC: SC 19:30 | PROVIDERS: ATTEND Internal Medicine Pulmonary Disease | DX: G47.33 Obstructive sleep apnea (adult) (pediatric) (principal) | CPT/HCPCS: 95806 ==

== ENCOUNTER 2019-05-20 12:07 | Emergency (ER) | payer MEDICARE, MEDICAID ==
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
[2019-05-20] MEDS: oxyCODONE 5 MG TABLET PO STA ×2 (14:26→14:36)
[2019-05-20] MEDS ORDERED: oxyCODONE 5 MG TABLET PO STA (14:32)
[2019-05-20 15:40] LABS: BILIRUBIN,URINE NEGATIVE (NEGATIVE); GLUCOSE, URINE (UA) NEGATIVE (NEGATIVE); KETONES,URINE (UA) NEGATIVE (NEGATIVE); LEUKOCYTE ESTERASE, URINE NEGATIVE (NEGATIVE); NITRITE,URINE NEGATIVE (NEGATIVE); OCCULT BLOOD,URINE NEGATIVE (NEGATIVE); PROTEIN,URINE NEGATIVE (NEGATIVE); UROBILINOGEN,URINE 0.2 (NORMAL) E.U./dL (NORMAL)
[2019-05-20 15:45] LABS: CLARITY,URINE CLEAR (CLEAR)
--- NOTE | 2019-05-20 16:01 | XRAY Report ---
Reason: dyspnea Procedure Date: 05/20/2019 Accession Number: [id number] / [id number] Procedure: XR - Chest 2 View X-Ray CPT Code: 34829 FULL RESULT: EXAM: CHEST RADIOGRAPHY EXAM DATE: 05/20/2019 03:46 PM. CLINICAL HISTORY: Dyspnea. COMPARISON: 04/24/2014 2:05 PM. TECHNIQUE: 2 views. FINDINGS: Lateral view is motion degraded. LUNGS: The lungs are clear. PLEURA: No significant pleural effusion. No clinically significant pneumothorax. MEDIASTINUM: The cardiomediastinal silhouette is unremarkable. BONES: No displaced acute fracture. No suspicious osseous lesions. IMPRESSION: No acute disease within the limits of the study. RADIA
[2019-05-20 16:14] VITALS: BP 136/80
== END 2019-05-20 16:13 | disposition home or self-care (01) ==
LOC: ED 12:07
DX: M54.5 Low back pain (principal); I10 Essential (primary) hypertension
CPT/HCPCS: 71046; 81003; 99283; 99284; A9270; 81001; 87086

== ENCOUNTER 2019-07-04 15:03 | Outpatient (CLI) | payer MEDICARE, MEDICAID ==
--- NOTE | 2019-07-04 16:09 | SLEEP CARE CONSULTATION ---
Information from patient questionnaire entered by Jayla Lozano. I have reviewed and concur with the information entered by Jayla Lozano. This document represents the service I personally performed and the decisions made by me, Thomas Duncan MD, [facility]. History of Present Illness Previous diagnosis: Severe, Obstructive Sleep Apnea-Hypopnea Syndrome AHI: 43.2 Reason for CPAP/BiPAP follow up: first compliance, annual, with sleep study Equipment type: CPAP Equipment obtained from: [facility] Prior sleep studies: Yes Year and Where: [facility] HPI additional information: HPI: Mr. Alanis returned today for follow up of nasal CPAP therapy. The clinic visit was conducted with an online manager automotive. He was diagnosed to have severe obstructive sleep apnea-hypopnea syndrome. [facility] He complains that nobody is sending him supplies. He reports using the device nightly and all through the night. He wears the Respironics Nuance nasal pillows. The compliance report shows usage in 28 nights out of the past 30 nights, averaging 7.6 hours a night. He complained of no particular problem with the device such as soreness on the face, dry nose, epistaxis, nasal congestion or headache. He thinks that the pressure of 18/12 cmH2O is too low. On the BiPAP therapy he notices improvement in his sleep quality, and that he wakes up feeling fresher in the morning and more awake/alert during the day. The [place] Sleepiness Scale score 4. The average residual AHI is 7.9; and air leak, 20.7 L/min. CPAP Compliance Data - Data Reviewed with Patient Average duration of nightly device use: 7h 36m Compliance rate %: 90 Current pressure setting (cmH2O): 18/12 Subjective Patient concerns: reports: dry mouth, nose, throat, other (not a good seel for mask) Initial [place] Sleepiness Scale score: 4 Allergies and Home Medications Drug allergies reviewed: Yes Home medication list reviewed: Yes Review of Systems Review of systems same as previous: Yes Impression and Plan IMPRESSION: 1. Obstructive Sleep Apnea-Hypopnea Syndrome, severe, with the patient doing well on nasal CPAP therapy. He has good compliance and significant clinical improvement. The current pressure appears slightly ineffective. The reason for him not getting supplies is that he was considered non-compliant in 2010 when his first machine was ordered. Therefore, another sleep study had to be done. With recent home sleep apnea test (HSAT), he should be able to start getting supplies again from [facility]. Because the residual AHI is still elevated and the patient feels that the pressure is too low, I will raise it to 20/14 cmH2O. PLAN: 1. Increase BiPAP to 20/14 cmH2O. 2. New prescription made for BiPAP and supplies. 3. Return for follow up in a year or earlier if there is any problem. I spent 100% of this 15 minute visit face to face with the patient with greater than 50% of this was spent time counseling the patient and coordination of care.
== END 2019-07-04 15:04 | disposition home or self-care (01) ==
LOC: SC 15:03
PROVIDERS: ATTEND Internal Medicine Pulmonary Disease
DX: G47.33 Obstructive sleep apnea (adult) (pediatric) (principal)
CPT/HCPCS: 99212; 99213

== ENCOUNTER 2019-11-01 14:25 | Outpatient (CLI) | payer MEDICARE, MEDICAID ==
--- NOTE | 2019-11-01 22:45 | SLEEP CARE CONSULTATION ---
Information from patient questionnaire entered by Jayla Lozano. I have reviewed and concur with the information entered by Jayla Lozano. This document represents the service I personally performed and the decisions made by me, Thomas Duncan MD, [facility]. History of Present Illness Previous diagnosis: Severe, Obstructive Sleep Apnea-Hypopnea Syndrome AHI: 43.2 Reason for follow up: first compliance Equipment type: CPAP Equipment obtained from: [employer] Prior sleep studies: Yes HPI additional information: HPI: Mr. Alanis returned today for follow up of BiPAP therapy. The clinic visit was conducted with an online court interpreter. He was diagnosed to have severe obstructive sleep apnea-hypopnea syndrome. The patient recently acquired a new BiPAP from [employer]. He reports using the device nightly and all through the night. He wears the Respironics Nuance nasal pillows. The compliance report shows usage in 30 nights out of the past 30 nights, averaging 5.7 hours a night. He complained of dry mouth. He already has the heated humidifier set at maximum. He thinks that the pressure of 20/14 cmH2O is comfortable (raised from 18/12 cmH2O for elevated residual AHI of 7.9). On the BiPAP therapy he notices improvement in his sleep quality, and that he wakes up feeling fresher in the morning and more awake/alert during the day. The [place] Sleepiness Scale score 5. The average residual AHI is now 14.1 (most of the residual respiratory events are hypopneas); and air leak, 20.7 L/min. Subjective Patient concerns: reports: dry mouth, nose, throat (*nose) Current pressure setting perceived as: comfortable Initial [place] Sleepiness Scale score: 4 Current [place] Sleepiness Scale score: 5 Allergies and Home Medications Drug allergies reviewed: Yes Home medication list reviewed: Yes Review of Systems Review of systems same as previous: Yes Physical Exam Height: 6 ft Weight: 365 lb Body Mass Index: 49.5 BMI Classification: Obesity Class 3 Impression and Plan IMPRESSION: 1. Obstructive Sleep Apnea-Hypopnea Syndrome, severe, with the patient doing well on nasal CPAP therapy. He has good compliance and significant clinical improvement. The current high pressure appears less effective. I will try lower pressure setting at 16/10 cmH2O. This should help to reduce air leak. We may have to raise it back up if he feels like he is not getting enough air. PLAN: 1. Lower BiPAP to 16/10 cmH2O. 2. Get new filters from the durable medical supplier. 3. Return for follow up in two months to recheck the residual AHI and air leak numbers. I spent 100% of this visit face to face with the patient with greater than 50% of this was spent time counseling the patient and coordination of care.
== END 2019-11-01 14:26 | disposition home or self-care (01) ==
LOC: SC 14:25
PROVIDERS: ATTEND Internal Medicine Pulmonary Disease
DX: G47.33 Obstructive sleep apnea (adult) (pediatric) (principal); E66.9 Obesity, unspecified; Z68.42 Body mass index [BMI] 45.0-49.9, adult
CPT/HCPCS: 99213; G0463; 99212

== ENCOUNTER 2020-04-03 14:57 | Outpatient (CLI) | payer MEDICARE, MEDICAID ==
--- NOTE | 2020-04-03 16:32 | SLEEP CARE CONSULTATION ---
Information from patient questionnaire entered by Cheryl Hyatt. I have reviewed and concur with the information entered by Cheryl Hyatt. This document represents the service I personally performed and the decisions made by me, Thomas Duncan MD, [facility]. History of Present Illness Service Date and Time: 04/03/2020 8583 Previous diagnosis: Severe, Obstructive Sleep Apnea-Hypopnea Syndrome AHI: 43.2 (in 2019)(34.4 in 2010) Reason for follow up: other (5 month ) Equipment type: BiPAP Equipment obtained from: [employer] Mask style: Nasal pillows Mask brand: Respironics Prior sleep studies: Yes Year and Where: 2018 - [facility] ([place]) Type of Sleep Study: Home sleep study HPI additional information: Mr. Alanis came in with his mother for a follow up of the BiPAP therapy. An online instructional design consultant was also utilized. On his last visit in October, I lowered the pressure from 18/12 to 16/10 cmH2O to help reduce air leak. The patient says that the pressure remains comfortable but anything less will probably be uncomfortable. He wears nasal pillows. The residual AHI remains about the same at 15.4 (was 14.7). He still has large air leak of 2 hours a night. Overall, he is comfortable. CPAP Compliance Data - Data Reviewed with Patient Average duration of nightly device use: 6.5 Compliance rate %: 98.9 (90 days) Current pressure setting (cmH2O): 16/10 Humidity settin Heated hose settin Average residual AHI: 15.4 Average large leak: 2 hr 2 min 33 sec Subjective Initial [place] Sleepiness Scale score: 13 (in 2010) Allergies and Home Medications Drug allergies reviewed: Yes Home medication list reviewed: Yes Physical Exam Vital signs obtained and entered by: Due to the COVID-19 pandemic, detailed physicial exam was not performed. Height: 6 ft Weight: 337 lb Body Mass Index: 45.7 BMI Classification: Morbidly Obese Impression and Plan IMPRESSION: 1. Obstructive Sleep Apnea-Hypopnea Syndrome, severe, with the patient doing well on nasal CPAP therapy. He has good compliance and significant clinical improvement. I will leave the BiPAP at 16/10 cmH2O. We have tried to adjust the pressure up and down but the residual AHI remains about the same. PLAN: 1. Leave BiPAP at 16/10 cmH2O. 2. Try to lose weight. 3. Return for follow up in a year or earlier if there is any problem. Visit Type: In Office Time Spent with Patient (minutes): 15 Provider Statement: I spent 100% of the Face to Face Visit with the patient with greater than 50% spent counseling the patient and coordination of care.
== END 2020-04-03 14:58 | disposition home or self-care (01) ==
LOC: SC 14:57
PROVIDERS: ATTEND Internal Medicine Pulmonary Disease
DX: G47.33 Obstructive sleep apnea (adult) (pediatric) (principal); E66.01 Morbid (severe) obesity due to excess calories; Z68.42 Body mass index [BMI] 45.0-49.9, adult
CPT/HCPCS: 99213; G0463; 99212

== ENCOUNTER 2020-05-25 08:00 | Outpatient (CLI) | payer MEDICARE, MEDICAID ==
--- NOTE | 2020-05-25 16:24 | XRAY Report ---
PROCEDURE: Shoulder 2 View BILAT INDICATIONS: BILATERAL SHOULDER PAIN, LIFTING INJ TECHNIQUE: 2 views of the shoulder were acquired. COMPARISON: None. FINDINGS: Bones: No fractures or dislocations. No suspicious bony lesions. Visualized ribs appear intact. M oderate bilateral acromioclavicular degenerative narrowing. Minimal periarticular osteophytes are pre sent. Glenohumeral joint space is slightly narrowed on the right. Soft tissues: No suspicious soft tissue calcifications. IMPRESSION: Moderate bilateral acromioclavicular degenerative narrowing as above. Reviewed by: Manuela Frautso MD on 05/25/2020 4:22 PM PDT Approved by: Manuela Frausto MD on 05/25/2020 4:22 PM PDT Station ID: [id number]
== END 2020-05-25 23:59 | disposition home or self-care (01) ==
LOC: DI.S 08:00
PROVIDERS: ATTEND Physician Assistant Medical
DX: M19.012 Primary osteoarthritis, left shoulder (principal); M19.011 Primary osteoarthritis, right shoulder

== ENCOUNTER 2020-08-13 07:40 | Outpatient (CLI) | payer MEDICARE, MEDICAID ==
[2020-08-13 15:49] LABS: BASOPHILS % (AUTO) 0.5 %; EOSINOPHILS # (AUTO) 0.2 10^3/uL (0.0-0.7); EOSINOPHILS % (AUTO) 2.1 %; HGB - HEMOGLOBIN 17.4 g/dL (14.0-18.0); LYMPHOCYTES # (AUTO) 1.9 10^3/uL (1.5-3.5); MEAN CORPUSCULAR HEMOGLOBIN 30.7 pg (27.0-31.0); MEAN CORPUSCULAR HGB CONC 34.1 g/dL (32.0-36.0); MEAN CORPUSCULAR VOLUME 90.1 fL (80.0-94.0); MEAN PLATELET VOLUME 10.2 fL (7.4-11.4); MONOCYTES # (AUTO) 0.7 10^3/uL (0.0-1.0); MONOCYTES % (AUTO) 8.3 %; NEUTROPHILS # (AUTO) 5.3 10^3/uL (1.5-6.6); NEUTROPHILS % (AUTO) 65.6 %; PLT - PLATELET COUNT 228 10^3/uL (130-450); RED BLOOD COUNT 5.67 10^6/uL (4.70-6.10); RED CELL DISTRIBUTION WIDTH 12.8 % (12.0-15.0); WHITE BLOOD COUNT 8.1 x10^3/uL (4.8-10.8)
[2020-08-13 16:14] LABS: ALBUMIN 4.2 g/dL (3.2-5.5); ALBUMIN/GLOBULIN RATIO 1.2 (1.0-2.2); ALKALINE PHOSPHATASE 53 IU/L (42-121); ALT ALANINE AMINOTRANSFERASE 45 IU/L (10-60); AST ASPARTATE AMINOTRANSFERASE 26 IU/L (10-42); BUN - BLOOD UREA NITROGEN 16 mg/dL (6-20); CARBON DIOXIDE - CO2 25 mmol/L (21-32); CHLORIDE 101 mmol/L (101-111); CHOL/HDL RATIO 4.9 (<5.0); CHOLESTEROL 151 mg/dL; CREATININE 0.9 mg/dL (0.6-1.2); GLUCOSE 129 mg/dL (70-100); HDL CHOLESTEROL 31 mg/dL; LDL CHOLESTEROL,CALCULATED 96 mg/dL; LDL/HDL RATIO 3.1 (<3.6); SODIUM 135 mmol/L (135-145); TOTAL PROTEIN 7.7 g/dL (6.7-8.2); VLDL CHOLESTEROL 24 mg/dL
== END 2020-08-13 07:41 | disposition home or self-care (01) ==
LOC: LAB.S 07:40
PROVIDERS: ATTEND Physician Assistant
DX: Z00.00 Encounter for general adult medical examination without abnormal findings (principal); Z79.899 Other long term (current) drug therapy; E66.01 Morbid (severe) obesity due to excess calories; G47.33 Obstructive sleep apnea (adult) (pediatric); Z72.51 High risk heterosexual behavior
CPT/HCPCS: 36415; 80053; 80061; 81599; 83721; 84443; 85025; 86592; 87389

== ENCOUNTER 2020-11-26 13:11 | Outpatient (CLI) | payer MEDICARE, MEDICAID ==
--- NOTE | 2020-11-26 15:26 | XRAY Report ---
PROCEDURE: Shoulder 3 View LT INDICATIONS: LEFT SHOULDER PAIN TECHNIQUE: 3 views of the shoulder were acquired. COMPARISON: None. FINDINGS: No fracture. Scattered subchondral sclerosis and spurring. Soft tissues: No suspicious soft tissue calcifications. IMPRESSION: Mild degenerative changes. If the patient's pain or other symptoms persist, consider fur ther evaluation with MRI. No fracture identified. Reviewed by: Sid Richards MD on 11/26/2020 3:25 PM [facility] Approved by: Sid Richards MD on 11/26/2020 3:25 PM [facility] Station ID: [id number]
== END 2020-11-26 23:59 | disposition home or self-care (01) ==
LOC: DI.S 13:11
PROVIDERS: ATTEND Physician Assistant
DX: M25.512 Pain in left shoulder (principal); M19.012 Primary osteoarthritis, left shoulder

== ENCOUNTER 2021-01-25 11:34 | Outpatient (CLI) | payer MEDICARE, MEDICAID ==
--- NOTE | 2021-01-25 12:51 | XRAY Report ---
PROCEDURE: Wrist 3 View LT INDICATIONS: WRIST PAIN, LEFT TECHNIQUE: 3 views of the wrist were acquired. COMPARISON: None FINDINGS: Bones: No acute fractures or dislocations. No suspicious bony lesions. Soft tissues: Small corticated calcification adjacent to proximal triquetrum and may represent old he aled injury.. IMPRESSION: No acute wrist fracture or dislocation. Possible old injury involving ulnar aspect of left wrist with small corticated calcification adjacent to proximal triquetrum. Reviewed by: Matias Quinones MD on 01/25/2021 12:50 PM PDT Approved by: Matias Quinones MD on 01/25/2021 12:50 PM PDT Station ID: [id number]
--- NOTE | 2021-01-25 12:53 | XRAY Report ---
PROCEDURE: Shoulder 2 View LT INDICATIONS: SHULDER IMPINGEMENT SYNDROME,LEFT TECHNIQUE: 3 views of the shoulder were acquired. COMPARISON: 11/26/2020, 05/25/2020. FINDINGS: Bones: No fractures or dislocations. Moderate acromioclavicular joint osteoarthritis and mild gleno humeral joint osteoarthritis is seen. No suspicious bony lesions. Visualized ribs appear intact. Soft tissues: No suspicious soft tissue calcifications. IMPRESSION: Mild to moderate left shoulder joint osteoarthritis. No fracture or dislocation. No laurita s soft tissue abnormality. Reviewed by: Matias Quinones MD on 01/25/2021 12:51 PM PDT Approved by: Matias Quinones MD on 01/25/2021 12:51 PM PDT Station ID: [id number]
== END 2021-01-25 11:35 | disposition home or self-care (01) ==
LOC: DI.S 11:34
PROVIDERS: ATTEND Physician Assistant
DX: M25.532 Pain in left wrist (principal); M19.012 Primary osteoarthritis, left shoulder

== ENCOUNTER 2021-02-19 10:18 | Emergency (ER) | payer MEDICARE, MEDICAID ==
[2021-02-19] MEDS ORDERED: SODIUM CHLORIDE 0.9% 1,000 ML IV STA (11:06)
[2021-02-19] MEDS ORDERED: MORPHINE 2 MG/ML CARPUJECT IVP STA (11:06)
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
[2021-02-19 11:28] LABS: BASOPHILS # (AUTO) 0.1 10^3/uL (0.0-0.1); BASOPHILS % (AUTO) 0.8 %; EOSINOPHILS # (AUTO) 0.3 10^3/uL (0.0-0.7); EOSINOPHILS % (AUTO) 3.7 %; HCT - HEMATOCRIT 48.6 % (42.0-52.0); HGB - HEMOGLOBIN 16.5 g/dL (14.0-18.0); MEAN CORPUSCULAR HEMOGLOBIN 30.2 pg (27.0-31.0); MEAN PLATELET VOLUME 9.8 fL (7.4-11.4); MONOCYTES # (AUTO) 0.7 10^3/uL (0.0-1.0); MONOCYTES % (AUTO) 7.8 %; NEUTROPHILS # (AUTO) 5.6 10^3/uL (1.5-6.6); NEUTROPHILS % (AUTO) 64.2 %; PLT - PLATELET COUNT 208 10^3/uL (130-450); RED BLOOD COUNT 5.46 10^6/uL (4.70-6.10); RED CELL DISTRIBUTION WIDTH 12.4 % (12.0-15.0); WHITE BLOOD COUNT 8.6 x10^3/uL (4.8-10.8)
[2021-02-19 11:44] LABS: ALBUMIN 4.2 g/dL (3.2-5.5); ALBUMIN/GLOBULIN RATIO 1.2 (1.0-2.2); BILIRUBIN,TOTAL 0.6 mg/dL (0.2-1.0); CALCIUM 9.2 mg/dL (8.5-10.3); TOTAL PROTEIN 7.6 g/dL (6.7-8.2)
[2021-02-19] MEDS ORDERED: IOPAMIDOL-300 50 ML VIAL ONE (11:49)
--- NOTE | 2021-02-19 12:02 | XRAY Report ---
PROCEDURE: Chest 1 View X-Ray INDICATIONS: R lateral lower rib pain TECHNIQUE: One view of the chest was acquired. COMPARISON: 03/07/2014 FINDINGS: Surgical changes and devices: None. Lungs and pleura: No pleural effusions or pneumothorax. Lungs are clear. Mediastinum: Mediastinal contours appear normal. Heart size is normal. Bones and chest wall: No suspicious bony lesions. Overlying soft tissues appear unremarkable. IMPRESSION: No acute cardiopulmonary process. Reviewed by: Matias Quinones MD on 02/19/2021 12:01 PM PDT Approved by: Matias Quinones MD on 02/19/2021 12:01 PM PDT Station ID: [id number]
[2021-02-19] MEDS ORDERED: IOVERSOL 320 100 ML VIAL IVP ONE ×2 (12:38→16:14)
--- NOTE | 2021-02-19 12:43 | CT Report ---
PROCEDURE: Abdomen/Pelvis W INDICATIONS: Abdominal pain, acute, nonlocalized CONTRAST: IV CONTRAST: Isovue 300 ml: 100 PO CONTRAST: *NO PO CONTRAST TECHNIQUE: After the administration of intravenous contrast, 5 mm thick sections acquired from the diaphragms to the symphysis. 5 mm thick coronal and sagittal reformats were acquired. For radiation dose reducti on, the following was used: automated exposure control, adjustment of mA and/or kV according to anjelica ent size. COMPARISON: 07/18/2018 FINDINGS: Lower thorax: The lung bases are clear. Heart size normal. No hiatal hernia. Liver: Liver shows diffusely decreased attenuation without focal mass lesion. Biliary system: Cholecystectomy. Pancreas: Unremarkable without mass or inflammation evident. Spleen: Normal in size and density. Adrenals: Normal morphology and density. Reproductive system: Unremarkable as visualized. Urinary system: Normal renal size and attenuation. Nonobstructive right renal calculi are again note d, largest 4 mm. Inferior pole calculus on the prior exam has resolved in the interval. No hydronephr osis or hydroureter. Gastrointestinal system: The bowel appears unremarkable with no evidence of bowel obstruction or inf lammation. The stomach appears unremarkable. Appendix: No findings to suggest acute appendicitis. Normal appendix identified. Peritoneal spaces: No mesenteric or retroperitoneal adenopathy. No free air. No free fluid. Vasculature: The IVC, aorta and iliac vasculature are unremarkable. Musculoskeletal: Normal bone mineralization. No acute fractures. Abdominal wall intact without shalom dence of ventral or inguinal hernias. IMPRESSION: No acute CT abdomen or pelvic findings. Right renal nonobstructive calculi are improved in number compared to the prior. No hydronephrosis. Cholecystectomy. Reviewed by: Gómez Shetty MD on 02/19/2021 11:42 AM PRAVEEN Approved by: Gómez Shetty MD on 02/19/2021 11:42 AM PRAVEEN Station ID: [id number]
[2021-02-19] MEDS ORDERED: KETOROLAC 30 MG/ML VIAL IVP STA (13:44)
--- NOTE | 2021-02-19 13:47 | CT Report ---
PROCEDURE: ANGIO CHEST W/WO INDICATIONS: elevated d-dimer CONTRAST: IV CONTRAST: Optiray 320 ml: 80 PO CONTRAST: *NO PO CONTRAST TECHNIQUE: After the administration of intravenous contrast, 2 mm thick sections acquired from the pulmonary api arelis to the posterior costophrenic angles. 3-dimensional maximum intensity projection (MIP) coronal a nd sagittal reformats were then acquired through the thorax. For radiation dose reduction, the follow ing was used: automated exposure control, adjustment of mA and/or kV according to patient size. COMPARISON: Chest x-ray 02/19/2021, CT chest 03/08/2014 FINDINGS: Image quality: Injection is suboptimal for evaluation of emboli distal to the main pulmonary artery. Pulmonary arteries: Pulmonary arteries are normal in size, and demonstrate no intraluminal filling d efects to suggest central pulmonary embolism. Lungs and pleura: Lungs are clear. No pleural effusions or pneumothorax. Central and peripheral ai rways are patent. Mediastinum: Heart size is normal, without pericardial effusion. No mediastinal or hilar adenopathy . Thoracic aorta is normal in caliber and enhancement. Esophagus is normal in caliber, without hiat al hernia. Bones and chest wall: No suspicious bony lesions. Ribs and thoracic spine appear intact throughout. No axillary or supraclavicular adenopathy. The thyroid is normal in size and there are no incident al findings. Abdomen: Hepatic steatosis is present. Otherwise, visualized upper abdominal solid organs appear norm al in the early arterial phase of enhancement. IMPRESSION: 1. No central pulmonary embolism. Segmental branches are unable to be evaluated secondary to contrast opacification. 2. Lungs are clear. Reviewed by: Manuela Frausto MD on 02/19/2021 1:45 PM PDT Approved by: Manuela Frausto MD on 02/19/2021 1:45 PM PDT Station ID: [id number]
[2021-02-19 13:53] LABS: BILIRUBIN,URINE NEGATIVE (NEGATIVE); GLUCOSE, URINE (UA) NEGATIVE (NEGATIVE); KETONES,URINE (UA) NEGATIVE (NEGATIVE); LEUKOCYTE ESTERASE, URINE NEGATIVE (NEGATIVE); NITRITE,URINE NEGATIVE (NEGATIVE); OCCULT BLOOD,URINE NEGATIVE (NEGATIVE); PROTEIN,URINE NEGATIVE (NEGATIVE); UROBILINOGEN,URINE 0.2 (NORMAL) E.U./dL (NORMAL)
[2021-02-19 13:54] LABS: CLARITY,URINE CLEAR (CLEAR)
[2021-02-19 14:25] VITALS: BP 157/91
--- NOTE | 2021-02-20 11:49 | ED Physician Documentation ---
ED Addendum - Addendum Addendum: In brief patient was signed out to me by my dayshift colleague Dr. Johnston. He presents emergency department for evaluation of right flank and low back pain. This is in the setting of a history of chronic low back pain. He had pending CT of the abdomen as well as CT angio of the chest ordered secondary to reported pleuritic chest pain and an elevated D-dimer. CT of the chest did not show any pulmonary embolus. A CT of the abdomen did show nonobstructing nephroliths. Following appropriate analgesia in the emergency department patient's symptoms were markedly improved. Using an river guide I was able to convey the final readings of the CAT scan as well as the diagnosis and impression for this patient. A limited prescription for narcotics was written I am prescribing a short course of short-acting opioid pain medication for this patient. I have reviewed the patients PIPE FITTER MAINTENANCE and no concerning findings were noted. I have discussed that the opioids are for short term therapy only, and will not be refilled from the ED. Final Impression: Low back pain acute on chronic Right flank pain Right nephrolithiasis without obstruction 02/20/21 11:47
== END 2021-02-19 14:33 | disposition home or self-care (01) ==
LOC: ED 10:18
DX: N20.0 Calculus of kidney (principal); M54.5 Low back pain; G89.29 Other chronic pain; I10 Essential (primary) hypertension; E66.01 Morbid (severe) obesity due to excess calories
CPT/HCPCS: 36415; 71045; 71275; 74177; 80053; 81003; 83690; 85025; 85379; 96361; 96374; 96375; 99284; Q9967; 81001; 87086

== ENCOUNTER 2021-03-18 10:58 | Outpatient (CLI) | payer MEDICARE, MEDICAID ==
--- NOTE | 2021-03-18 12:18 | SLEEP CARE CONSULTATION ---
Information from patient questionnaire entered by Cheryl Hyatt. I have reviewed and concur with the information entered by Cheryl Hyatt. This document represents the service I personally performed and the decisions made by me, Thomas Duncan MD, [facility] [place]. History of Present Illness Service Date and Time: 03/18/2021 1058 Previous diagnosis: Severe, Obstructive Sleep Apnea-Hypopnea Syndrome AHI: 43.2 (in 2019)(34.4 in 2010) Reason for follow up: annual (last seen 03/2020) Equipment type: BiPAP Equipment obtained from: [employer] Mask style: Nasal pillows Prior sleep studies: Yes Year and Where: 2018 - [facility] 2010 ([place]) HPI additional information: HPI: Mr. Alanis returned today for follow up of BiPAP therapy. The clinic visit was conducted with an online educational interpreter. He was diagnosed to have severe obstructive sleep apnea-hypopnea syndrome. The patient gets his supplies from [employer]. He continues to use the device nightly and all through the night. He wears the [employer] nasal pillows. The compliance report shows usage in 177 nights out of the past 180 nights, averaging 6.4 hours a night. He complained of dry mouth. He already has the heated humidifier set at maximum. He thinks that the pressure of 16/10 cmH2O is comfortable (lowered from 20/14 cmH2O last year). On the BiPAP therapy he notices improvement in his sleep quality, and that he wakes up feeling fresher in the morning and more awake/alert during the day. The [place] Sleepiness Scale score 2 (was 5). The average residual AHI is now 12.3 (was 14 last year); and average time in large leak per day is 1.9 hours. CPAP Compliance Data - Data Reviewed with Patient Average duration of nightly device use: 6 hr 25 min Compliance rate %: 96.1 (180 days) Current pressure setting (cmH2O): 16/10 Humidity settin Heated hose settin Average residual AHI: 12.3 Average large leak: 1 hr 52 min Subjective Current pressure setting perceived as: comfortable Initial [place] Sleepiness Scale score: 13 (in 2010) Current [place] Sleepiness Scale score: 2 Allergies and Home Medications Drug allergies reviewed: Yes Home medication list reviewed: Yes Review of Systems Review of systems same as previous: Yes Physical Exam Height: 5 ft 11 in Weight: 386 lb Weight change since last visit: +20 lbs Body Mass Index: 53.8 BMI Classification: Morbidly Obese Impression and Plan IMPRESSION: 1. Obstructive Sleep Apnea-Hypopnea Syndrome, severe, with the patient doing well on BiPAP therapy. He has good compliance and significant clinical improvement. The current high pressure appears just as effective as the higher setting. No adjustment is necessary today. PLAN: 1. Leave BiPAP at 16/10 cmH2O. 2. Try to lose weight. 3. Return for follow up in a year or earlier if there is any problem. Follow up recommended for: Weight management Visit Type: In Office Time Spent with Patient (minutes): 15 Provider Statement: I spent 100% of the Face to Face Visit with the patient with greater than 50% spent counseling the patient and coordination of care.
== END 2021-03-18 10:59 | disposition home or self-care (01) ==
LOC: SC 10:58
PROVIDERS: ATTEND Internal Medicine Pulmonary Disease
DX: G47.33 Obstructive sleep apnea (adult) (pediatric) (principal); E66.01 Morbid (severe) obesity due to excess calories; Z68.43 Body mass index [BMI] 50.0-59.9, adult
CPT/HCPCS: 99212; G0463

== ENCOUNTER 2021-06-13 14:30 | Outpatient (CLI) | payer MEDICARE, MEDICAID ==
--- NOTE | 2021-06-13 16:08 | XRAY Report ---
PROCEDURE: Elbow 3 View LT INDICATIONS: L ELBOW PX TECHNIQUE: 3 views of the elbow were acquired. COMPARISON: None FINDINGS: Bones: No fractures or dislocations. No suspicious bony lesions. Soft tissues: No elbow joint effusion. No suspicious soft tissue calcifications. IMPRESSION: No elbow fracture or dislocation. No joint effusion. Reviewed by: Matias Quinones MD on 06/13/2021 4:06 PM PDT Approved by: Matias Quinones MD on 06/13/2021 4:06 PM PDT Station ID: [id number]
== END 2021-06-13 23:59 | disposition home or self-care (01) ==
LOC: DI.N 14:30
PROVIDERS: ATTEND Physician Assistant
DX: M25.522 Pain in left elbow (principal)

== ENCOUNTER 2021-07-03 08:16 | Outpatient (CLI) | payer MEDICARE, MEDICAID ==
--- NOTE | 2021-07-04 12:51 | XRAY Report ---
PROCEDURE: Thoracic Spine 3 View INDICATIONS: SEGMENTAL DYSFUNCTION OF CERVICAL THORACIC REGION TECHNIQUE: 3 views of the thoracic spine were acquired. COMPARISON: None. FINDINGS: Bones: No fractures or dislocations. No suspicious bony lesions. 12 pairs of ribs are noted, and a ppear intact where visualized. Multilevel degenerative disc space narrowing. Minimal scattered anter ior osteophytes. Soft tissues: No paravertebral stripe thickening. IMPRESSION: Minimal degenerative change. No visualized acute fracture or dislocation. However, occult injury nola ot be excluded. Recommend short interval imaging follow-up in 7-10 days as clinically indicated for a dditional evaluation. Reviewed by: Manuela Frausto MD on 07/04/2021 12:50 PM PDT Approved by: Manuela Frausto MD on 07/04/2021 12:50 PM PDT Station ID: [id number]
--- NOTE | 2021-07-04 12:52 | XRAY Report ---
PROCEDURE: Cervical Spine 2 View INDICATIONS: SEGMENTAL DYSFUNCTION OF CERVICAL THORACIC REGION TECHNIQUE: 3 view(s) of the cervical spine were acquired. COMPARISON: X-ray cervical spine 03/13/2014 FINDINGS: Bones: No fractures or dislocations to the C7-T1 level. The lateral masses of C1 appear intact on t he odontoid view. No suspicious bony lesions. There is overall straightening of normal cervical cur vature. There is trace anterolisthesis of C4 on C5. Severe disc space narrowing is present at C5-6 an d C6-7 with bridging anterior osteophytes. Mild to moderate disc space narrowing is noted at C3-4. Mu ltilevel uncovertebral hypertrophy is present. Soft tissues: No prevertebral soft tissue swelling. IMPRESSION: Cervical straightening and multiple degenerative changes as above. MRI may be obtained a s clinically indicated for further evaluation of foraminal narrowing. Reviewed by: Manuela Frausto MD on 07/04/2021 12:51 PM PDT Approved by: Manuela Frausto MD on 07/04/2021 12:51 PM PDT Station ID: [id number]
== END 2021-07-03 08:17 ==
LOC: DI.S 08:16
PROVIDERS: ATTEND Physician Assistant Medical
DX: M99.01 Segmental and somatic dysfunction of cervical region (principal); M47.812 Spondylosis without myelopathy or radiculopathy, cervical region; M48.02 Spinal stenosis, cervical region; M47.814 Spondylosis without myelopathy or radiculopathy, thoracic region

== ENCOUNTER 2021-08-26 07:00 | Outpatient (CLI) | payer MEDICARE, MEDICAID ==
--- NOTE | 2021-08-26 12:02 | XRAY Report ---
PROCEDURE: Hip w/Pelvis 1V LT INDICATIONS: L HIP PX TECHNIQUE: AP pelvis with lateral view(s) of the left hip(s). COMPARISON: Pelvis and hip radiographs dated 05/29/2015. FINDINGS: Bones: No fractures or dislocations. Pelvic ring appears intact. No suspicious bony lesions. Bilat eral hip joint degeneration. Scattered subchondral sclerosis and spurring. Partially visualized late ral curvature of the lower lumbar spine and discogenic changes. Crosstable view is suboptimal seconda ry to body habitus. Soft tissues: The visualized bowel gas pattern is normal. No suspicious soft tissue calcifications. IMPRESSION: Bilateral mild hip joint degeneration, grossly unchanged on the left since 05/29/2015 Reviewed by: Sid Richards MD on 08/26/2021 12:01 PM PST Approved by: Sid Richards MD on 08/26/2021 12:01 PM PST Station ID: [id number]
== END 2021-08-26 23:59 | disposition home or self-care (01) ==
LOC: DI.N 07:00
PROVIDERS: ATTEND Physician Assistant
DX: M16.0 Bilateral primary osteoarthritis of hip (principal)

== ENCOUNTER 2021-10-08 08:00 | Outpatient (CLI) | payer MEDICARE, MEDICAID | END 2021-10-08 23:59 | LOC: LAB.S 08:00 | PROVIDERS: ATTEND Emergency Medicine | DX: U07.1 COVID-19 (principal) ==

== ENCOUNTER 2022-06-06 11:06 | Emergency (ER) | payer MEDICARE, MEDICAID ==
[2022-06-06 11:17] VITALS: BP 176/87
[2022-06-06] MEDS ORDERED: SODIUM CHLORIDE 0.9% 1,000 ML IV STA (11:24)
[2022-06-06 11:36] LABS: BILIRUBIN,URINE NEGATIVE (NEGATIVE); GLUCOSE, URINE (UA) NEGATIVE (NEGATIVE); KETONES,URINE (UA) NEGATIVE (NEGATIVE); LEUKOCYTE ESTERASE, URINE NEGATIVE (NEGATIVE); NITRITE,URINE NEGATIVE (NEGATIVE); OCCULT BLOOD,URINE NEGATIVE (NEGATIVE); PROTEIN,URINE NEGATIVE (NEGATIVE); UROBILINOGEN,URINE 0.2 (NORMAL) E.U./dL (NORMAL)
[2022-06-06 11:43] LABS: CLARITY,URINE CLEAR (CLEAR)
--- NOTE | 2022-06-06 11:43 | ED Physician Documentation ---
History of Present Illness - Stated complaint Stated Complaint: MALE - Chief complaint Chief Complaint: Abd Pain - Additonal information Additional information: 51-year-old male presents emergency department for evaluation of dysuria. He states that intermittently for about the last month he has been having some pain with urination. No urgency or frequency. No hematuria. He seems to experience the symptoms more when he is in the shower. He denies that he is having bloody stools or bloody diarrhea. He does have some generalized abdominal discomfort but no fevers or vomiting. The history was obtained with a video log chain feeder. Review of Systems Constitutional: denies: Fever, Chills Throat: reports: Reviewed and negative Cardiac: reports: Reviewed and negative Respiratory: denies: Dyspnea, Cough GI: reports: Abdominal Pain : reports: Dysuria. denies: Frequency, Hesitancy, Hematuria Skin: reports: Reviewed and negative Musculoskeletal: reports: Reviewed and negative PD PAST MEDICAL HISTORY - Past Medical History Cardiovascular: Hypertension Respiratory: Sleep apnea, CPAP use Neuro: None Endocrine/Autoimmune: None GI: GERD : Kidney stones HEENT: Chronic hearing loss Psych: None Musculoskeletal: Chronic back pain, Other Derm: Eczema - Past Surgical History Past Surgical History: Yes General: Cholecystectomy, Other Ortho: Carpal Tunnel surgery HEENT: Myringotomy (tubes) - Present Medications Home Medications: Ambulatory Orders Medication Instructions Recorded Confirmed HYDROcod/ACETAM 5/325 [[place] 5/325] 1 - 2 tablet PO Q6H PRN #14 tablet 02/19/21 Ibuprofen [Motrin] 800 mg PO Q8H PRN #30 tablet 02/19/21 - Allergies Allergies/Adverse Reactions: Allergies Allergy/AdvReac Type Severity Reaction Status Date / Time cefaclor [From Ceclor] Allergy Unknown Rash Verified 02/19/21 10:32 codeine [Codeine] Allergy Unknown unknown Verified 02/19/21 10:32 Sulfa (Sulfonamide Allergy Unknown unknown Verified 02/19/21 10:32 Antibiotics) - Social History Does the pt smoke?: No Smoking Status: Never smoker Does the pt drink ETOH?: Yes Does the pt have substance abuse?: Yes - Immunizations Immunizations are current?: No Immunizations: TDAP >10years/unknown - POLST Patient has POLST: No PD ED PE EXPANDED - General General: Alert, No acute distress, Other (morbidly obese) - Cardiac Cardiac: Regular Rate, Radial strong equal - Respiratory Respiratory: Clear to ausultation dana. No: Distress, Labored - Abdomen Abdomen: Normal Bowel sounds, Tender to palpation (generalized non focal abdominal pain without peritonal signs. exam is limited by body habitus) - Derm Derm: Normal color, Warm and dry - Neuro Neuro: Alert and Oriented X 3 - GCS Eye Opening: Spontaneous Motor: Obeys Commands Verbal: Oriented Total: 15 Results - Vitals Vitals: Vital Signs - 24 hr 06/06/22 11:12 Temperature 36 C L Heart Rate 78 Respiratory 16 Rate Blood Pressure 176/87 H O2 Saturation 95 Oxygen O2 Source Room air - Labs Labs: Laboratory Tests 06/06/22 06/06/22 06/06/22 11:29 11:42 11:42 WBC 7.6 RBC 5.68 Hgb 17.0 Hct 48.8 MCV 85.9 MCH 29.9 MCHC 34.8 RDW 12.4 Plt Count 214 MPV 9.9 Neut # (Auto) 4.8 Lymph # (Auto) 1.9 [place] # (Auto) 0.7 Eos # (Auto) 0.2 Baso # (Auto) 0.0 Absolute Nucleated RBC 0.00 Nucleated RBC % 0.0 Sodium 131 L Potassium 4.1 Chloride 97 L Carbon Dioxide 27 Anion Gap 7.0 BUN 14 Creatinine 0.8 Estimated GFR (MDRD) 102 Glucose 175 H Calcium 9.1 Total Bilirubin 0.9 AST 27 ALT 51 Alkaline Phosphatase 54 Total Protein 7.5 Albumin 4.3 Globulin 3.2 Albumin/Globulin Ratio 1.3 Lipase 51 Urine Color YELLOW Urine Clarity CLEAR Urine pH 6.0 Ur Specific [place] 1.025 Urine Protein NEGATIVE Urine Glucose (UA) NEGATIVE Urine Ketones NEGATIVE Urine Occult Blood NEGATIVE Urine Nitrite NEGATIVE Urine Bilirubin NEGATIVE Urine Urobilinogen 0.2 (NORMAL) Ur Leukocyte Esterase NEGATIVE Ur Microscopic Review NOT INDICATED Urine Culture Comments NOT INDICATED - Rads (name of study) CT abd Radiology: Final report received (Hepatic steatosis. Multiple 2 to 3 mm nonobstructing punctate stones in the right kidney. No obstructive kidney stones) PD MEDICAL DECISION MAKING - ED course Complexity details: reviewed results, re-evaluated patient, considered differential, d/w patient ED course: 51-year-old male presents emergency department for evaluation of intermittent dysuria for about the last month. He is occasionally reporting some blood streaking in his stools. He had no fevers or weight loss. He reports difficulty arranging follow-up with his primary care provider as appointments are months out. 9 on exam he is well-appearing and his abdominal exam was somewhat limited by body habitus. CBC showed no worrisome abnormalities. Electrolytes show mild hyponatremia as well as mildly elevated blood glucose. The patient is concerned that he could be developing diabetes. CT of the abdomen shows multiple nonobstructing renal stones but no ureter stones. I am encouraging patient to have close follow-up with his PCP. Given the occasionally blood-streaked stools and his age he would benefit from a screening colonoscopy. He may also want to consider longer-term evaluation and testing of hyperglycemia or early diabetes. History and exam completed with log chain feeder. Emergent return precautions were discussed Departure - Departure Disposition: 01 Home, Self Care Clinical Impression: Dysuria, Elevated random blood glucose level Condition: Stable Record reviewed to determine appropriate education?: Yes Comments: Bubba travis are seen today in the emergency department because for about a month you have been having some intermittent painful urination. You have also occasionally reported some blood when you pass stools. Your labs today show a mildly elevated blood glucose of 175. It is likely that you are developing early diabetes. I encourage you to follow-up closely with your primary care provider. They may want to consider healthier diet, weight loss. The CT of your abdomen shows that you do have multiple tiny stones in your right kidney. There does not appear to be any obstruction. Some of the intermittent painful urination may be occurring because you are passing tiny stones. I encourage you to follow-up closely with your primary care provider. With the blood streaking in your stools, your age as well as obesity you should be re ferred for a screening colonoscopy. If at any point you have worsening symptoms, severe pain, uncontrolled vomiting then do not hesitate to return to the emergency department for a second evaluation.
[2022-06-06 11:47] LABS: BASOPHILS % (AUTO) 0.5 %; EOSINOPHILS # (AUTO) 0.2 10^3/uL (0.0-0.7); EOSINOPHILS % (AUTO) 2.2 %; HCT - HEMATOCRIT 48.8 % (42.0-52.0); LYMPHOCYTES # (AUTO) 1.9 10^3/uL (1.5-3.5); LYMPHOCYTES % (AUTO) 24.9 %; MEAN CORPUSCULAR HEMOGLOBIN 29.9 pg (27.0-31.0); MEAN CORPUSCULAR HGB CONC 34.8 g/dL (32.0-36.0); MEAN CORPUSCULAR VOLUME 85.9 fL (80.0-94.0); MEAN PLATELET VOLUME 9.9 fL (7.4-11.4); MONOCYTES # (AUTO) 0.7 10^3/uL (0.0-1.0); MONOCYTES % (AUTO) 8.6 %; NEUTROPHILS # (AUTO) 4.8 10^3/uL (1.5-6.6); NEUTROPHILS % (AUTO) 63.4 %; PLT - PLATELET COUNT 214 10^3/uL (130-450); RED BLOOD COUNT 5.68 10^6/uL (4.70-6.10); RED CELL DISTRIBUTION WIDTH 12.4 % (12.0-15.0); WHITE BLOOD COUNT 7.6 x10^3/uL (4.8-10.8)
[2022-06-06 12:01] LABS: ALBUMIN 4.3 g/dL (3.2-5.5); ALBUMIN/GLOBULIN RATIO 1.3 (1.0-2.2); BILIRUBIN,TOTAL 0.9 mg/dL (0.2-1.0); CALCIUM 9.1 mg/dL (8.5-10.3); CREATININE 0.8 mg/dL (0.6-1.2); POTASSIUM 4.1 mmol/L (3.5-5.0); TOTAL PROTEIN 7.5 g/dL (6.7-8.2)
--- NOTE | 2022-06-06 12:32 | CT Report ---
PROCEDURE: Abdomen/Pelvis WO INDICATIONS: dysuria; no infection; ? stones TECHNIQUE: Noncontrast 5 mm thick sections acquired from the diaphragms to the symphysis. 5 mm coronal and sagi ttal reformats were then performed. For radiation dose reduction, the following was used: automated exposure control, adjustment of mA and/or kV according to patient size. COMPARISON: None. FINDINGS: Image quality: Excellent. ABDOMEN: Lung bases: Lung bases are clear. Heart size is normal. Solid organs: Liver has decreased density consistent with hepatic steatosis. The liver appears diffu sely enlarged.. Gallbladder is status post cholecystectomy Pancreas is normal in contours. No adre nal nodules. The right kidney has multiple punctate calcifications measuring 2 to 3 mm which are nono bstructive. Peritoneum and bowel: Unenhanced bowel loops demonstrate normal wall thickness and caliber. No free fluid or air. Nodes and vessels: No retroperitoneal or mesenteric adenopathy by size criteria. Aorta and inferior vena cava are normal in caliber. Miscellaneous: No ventral hernias. PELVIS: Genitourinary: Bladder wall thickness is normal. Miscellaneous: No inguinal hernias or adenopathy. Bones: No suspicious bony lesions. No vertebral body compression fractures. IMPRESSION: 1. Multiple 2 to 3 mm nonobstructing punctate stones in the right kidney. No obstructive kidney stone s. 2. Hepatic steatosis. Reviewed by: Donovan Gloria on 06/06/2022 12:31 PM PDT Approved by: Donovan Gloria on 06/06/2022 12:31 PM PDT Station ID: [id number]
== END 2022-06-06 13:14 | disposition home or self-care (01) ==
LOC: ED 11:06
DX: R30.0 Dysuria (principal); R73.9 Hyperglycemia, unspecified; I10 Essential (primary) hypertension
CPT/HCPCS: 36415; 80053; 81001; 81003; 83690; 85025; 87086; 99284

== ENCOUNTER 2022-06-24 11:22 | Outpatient (CLI) | payer MEDICARE, MEDICAID ==
--- NOTE | 2022-06-24 14:53 | XRAY Report ---
PROCEDURE: Lumbar Spine 2 View INDICATIONS: LOW BACK PAIN, CHRONIC TECHNIQUE: 2 views of the lumbar spine were acquired. COMPARISON: None. FINDINGS: Bones: 5 [id number] vertebrae are present. There is leftward scoliotic curvature with apex at L1-2. There is multilevel moderate to severe degenerative disc space narrowing most significant at L1 -2, L2-3. Bridging anterior osteophytes are present at L1-2 as well as L2-3. There is moderate to sev ere foraminal narrowing at L4-5 and L5-S1. Overall, changes have become progressive compared to prior exam.. No vertebral body compression fractures. No suspicious bony lesions. Soft tissues: Overlying bowel gas pattern is normal. No suspicious soft tissue calcifications. IMPRESSION: Progressive multilevel degenerative changes as above. Reviewed by: Manuela Frausto MD on 06/24/2022 2:51 PM PDT Approved by: Manuela Frausto MD on 06/24/2022 2:51 PM PDT Station ID: [id number]
--- NOTE | 2022-06-24 14:53 | XRAY Report ---
PROCEDURE: Foot 2 View RT INDICATIONS: FOOT PAIN, RIGHT TECHNIQUE: 2 views of the foot were acquired. COMPARISON: None FINDINGS: Bones: No fractures or dislocations. No suspicious bony lesions. Soft tissues: No tibiotalar joint effusion. Achilles tendon appears normal. IMPRESSION: No visualized acute fracture or dislocation. However, occult injury cannot be excluded. Recommend daniel rt interval imaging follow-up in 7-10 days as clinically indicated for additional evaluation. Reviewed by: Manuela Frausto MD on 06/24/2022 2:52 PM PDT Approved by: Manuela Frausto MD on 06/24/2022 2:52 PM PDT Station ID: [id number]
== END 2022-06-24 11:23 | disposition home or self-care (01) ==
LOC: DI.S 11:22
PROVIDERS: ATTEND Registered Nurse
DX: M79.671 Pain in right foot (principal); M41.9 Scoliosis, unspecified; M51.36 Other intervertebral disc degeneration, lumbar region; M48.061 Spinal stenosis, lumbar region without neurogenic claudication

== ENCOUNTER 2022-09-04 07:03 | Day surgery (SDC) | payer MEDICARE, MEDICAID ==
[2022-09-04] MEDS ORDERED: LACTATED RINGERS 1,000 ML IV ONE ×2 (07:10→09:16)
[2022-09-04] MEDS ORDERED: PROPOFOL 500 MG/50 ML 500 MG/50 ML VIAL ONE (08:12)
[2022-09-04] MEDS ORDERED: KETAMINE 500 MG/10 ML VIAL ONE (08:12)
[2022-09-04] MEDS ORDERED: PROPOFOL 200 MG/20 ML VIAL IVP ONE (08:13)
[2022-09-04] MEDS ORDERED: MIDAZOLAM 2 MG/2 ML VIAL ONE (08:24)
[2022-09-04] MEDS ORDERED: ONDANSETRON 4 MG/2 ML VIAL ONE (08:28)
[2022-09-04] MEDS ORDERED: SIMETHICONE 40 MG/0.6 ML 30 ML BOTTLE PO ONE (08:55)
--- NOTE | 2022-09-04 08:57 | ANESTHESIA ---
Pre-Anesthesia VS, & Labs - Diagnosis screening - Procedure colonoscopy Vital Signs: Temp Pulse Resp BP Pulse Ox O2 Flow Rate 36 C L 82 13 154/79 H 95 0 09/04/22 07:37 09/04/22 07:37 09/04/22 07:37 09/04/22 07:37 09/04/22 07:37 09/04/22 07:37 Height: 5 ft 11 in Weight (kg): 354 kg Body Mass Index: 108.8 BMI Classification: Morbidly Obese - NPO >8 hours - Lab Results Current Lab Results: Laboratory Tests 09/04/22 07:47: POC Whole Bld Glucose 111 H Home Medications and Allergies Allergies/Adverse Reactions: Allergies Allergy/AdvReac Type Severity Reaction Status Date / Time cefaclor [From Ceclor] Allergy Unknown Rash Verified 02/19/21 10:32 codeine [Codeine] Allergy Unknown unknown Verified 02/19/21 10:32 Sulfa (Sulfonamide Allergy Unknown unknown Verified 02/19/21 10:32 Antibiotics) Anes History & Medical History - Anesthetic History Anesthesia Complications: reports: No previous complications Family history of Anesthesia Complications: Denies Family history of Malignant Hyperthermia: Denies - Medical History Cardiovascular: reports: Hypertension Pulmonary: reports: Sleep apnea, CPAP use Gastrointestinal: reports: GERD Urinary: reports: Kidney stones Neuro: reports: None Musculoskeletal: reports: Chronic back pain, Other Endocrine/Autoimmune: reports: Type 2 diabetes Blood Disorders: reports: None Skin: reports: Eczema Smoking Status: Never smoker Psychosocial: reports: Cannabis - Surgical History General: reports: Cholecystectomy, Other Eyes Ears Nose Throat (EENT): reports: Myringotomy (tubes) Orthopedic: reports: Carpal Tunnel surgery Exam General: Alert (deaf, zipper ironer used), Oriented x3, Cooperative Dental: WNL Mouth Openin Fingerbreadth Neck Mobility: Normal Thyromental Distance: less than 4 cm Respiratory: Lungs clear Cardiovascular: Regular rate (large paris) Plan Anesthesia Type: Total IV Consent for Procedure(s) Verified and Reviewed: Yes Code Status: Attempt Resuscitation ASA classification: 3-Severe systemic disease Is this case an emergency?: No
[2022-09-04 09:34] VITALS: BP 125/68
--- NOTE | 2022-09-04 14:41 | ANESTHESIA POST OP EVALUATION ---
Anesthesia Post Eval - Post Anesthesia Eval Vitals: Last Vital Signs Temp 36.4 C L 09/04/22 09:16 Pulse 78 09/04/22 09:32 Resp 16 09/04/22 09:32 BP 125/68 09/04/22 09:32 Pulse Ox 93 09/04/22 09:32 O2 Flow Rate 0 09/04/22 07:37 CV Function Including HR & BP: Stable Pain Control: Satisfactory Nausea & Vomiting: Negative Mental Status: Baseline Respiratory Status: Airway Patent Hydration Status: Satisfactory Anesthesia Complications: None
== END 2022-09-04 07:04 | disposition home or self-care (01) ==
LOC: SDS 07:03
PROVIDERS: ATTEND Surgery
PROC: 0DBN8ZX Excision of Sigmoid Colon, Via Natural or Artificial Opening Endoscopic, Diagnostic (ICD-10-PCS; principal; 2022-09-04 08:30)
DX: Z12.11 Encounter for screening for malignant neoplasm of colon (principal); K63.5 Polyp of colon; K64.5 Perianal venous thrombosis; K57.30 Diverticulosis of large intestine without perforation or abscess without bleeding; E66.01 Morbid (severe) obesity due to excess calories; G47.33 Obstructive sleep apnea (adult) (pediatric); E11.9 Type 2 diabetes mellitus without complications; I10 Essential (primary) hypertension; Z68.42 Body mass index [BMI] 45.0-49.9, adult; Z80.0 Family history of malignant neoplasm of digestive organs
CPT/HCPCS: 45380; A9270; J7120

== ENCOUNTER 2022-10-30 12:24 | Emergency (ER) | payer MEDICARE, MEDICAID ==
[2022-10-30 12:33] VITALS: BP 147/92
--- OUTSIDE RECORDS SUMMARY | 2022-10-30 12:54 | EXTERNAL MEDICAL SUMMARY RPT | Continuity of Care Document ---
:1970 Author Organization [facility] Address [address] [place] [address] Phone Care Team Providers Name Role Phone Unavailable Unavailable Unavailable Kathryn Kahn Unavailable Unavailable Allergies No information. Encounters No information. Functional Status No information. Immunizations No information. Medications No information. Problems date description facility 2022-08-27 00:00 Recurrent acute otitis media All 2022-08-27 00:00 Connective tissue and disc stenosis of intervertebral All foramina 2022-08-27 00:00 Morbid obesity All 2022-08-27 00:00 Shoulder joint inflamed All 2022-08-27 00:00 Unspecified otitis media All 2022-08-27 00:00 Impaired fasting glycemia All 2022-08-27 00:00 Unspecified essential hypertension All 2022-08-27 00:00 Cervical disc disorder All 2022-08-27 00:00 History of calculus of kidney All 2022-08-27 00:00 Eczema All 2022-08-27 00:00 Seasonal allergy All 2022-08-27 00:00 Allergic rhinitis, cause unspecified A ll 2022-08-27 00:00 Essential hypertension All 2022-08-27 00:00 Contact dermatitis and other eczema, un specified cause All 2022-08-27 00:00 Arthropathy, unspecified, involving daniel ulder region All 2022-08-27 00:00 Intervertebral disc disorder with myelo blossom, cervical All region 2022-08-27 00:00 Spinal stenosis of cervical region All 2022-08-27 00:00 Obstructive sleep apnea syndrome All 2022-08-27 00:00 Morbid (severe) obesity due to excess c alories All 2022-08-27 00:00 Obstructive sleep apnea (adult) (pediat karli) All 2022-08-27 00:00 Otitis media, unspecified, unspecified ear All 2022-08-27 00:00 Conductive hearing loss, bilateral All 2022-08-27 00:00 Essential (primary) hypertension All 2022-08-27 00:00 Other seasonal allergic rhinitis All 2022-08-27 00:00 Dermatitis, unspecified All 2022-08-27 00:00 Other specific arthropathies, not elsew here All classified, left shoulder 2022-08-27 00:00 Cervical disc disorder, unspecified, un specified All cervical region 2022-08-27 00:00 Connective tissue and disc stenosis of i ntervertebral All foramina of cervical region 2022-08-27 00:00 Impaired fasting glucose All 2022-08-27 00:00 Screening for malignant neoplasms of co yamila All 2022-08-27 00:00 Encounter for screening for malignant n eoplasm of All colon 2022-08-27 00:00 Personal history of urinary calculi Al l Procedures date description facility 2022-08-27 00:00 Visit Code Hold All Results/Labs No information. Social History No information. Vital Signs date measurement value units 2022-08-27 00:00 BMI 48.59 kg/m2 2022-08-27 00:00 BP_diastolic 83 mmHg 2022-08-27 00:00 BP_systolic 130 mmHg 2022-08-27 00:00 heart_rate 71 /min 2022-08-27 00:00 height_metric 182.88 cm 2022-08-27 00:00 height_standard 72 in 2022-08-27 00:00 respiration_rate 18 /min 2022-08-27 00:00 temperature_metric 36.44 C 2022-08-27 00:00 temperature_standard 97.6 F 2022-08-27 00:00 weight_metric 161.93 kg 2022-08-27 00:00 weight_standard 357 lb
--- NOTE | 2022-10-30 14:16 | Ultrasound Report ---
PROCEDURE: Testicle w/Doppler INDICATIONS: testicular pain TECHNIQUE: Real-time scanning was performed of the scrotum and testicles, with image documentation. Color and p ulse Doppler interrogation was performed of both testicles. COMPARISON: None. FINDINGS: Right: Testicle is normal in size at 4.1 x 2.2 x 3.9 cm, and homogenous in echotexture. The right e pididymis appears heterogeneous with increased vascularity, which is suspicious for epididymitis. Sma ll right hydrocele. Possible mild varicocele. A 0.3 cm right epididymal head cyst is present. Overlyi ng scrotal skin is normal in thickness. Left: Testicle is normal in size at 4.8 x 2.2 x 3.9 cm, and homogeneous in echotexture. Epididymis is normal in overall size and morphology. Possible mild varicocele. No hydrocele. Overlying scrotal s kin is normal in thickness. Doppler: Color and pulse Doppler demonstrate normal and symmetric arterial flow in both testicles. IMPRESSION: Heterogeneous and hypervascular appearance of the right epididymis is suspicious for epididymitis. No signs of testicular torsion. Reviewed by: Sean Solorio MD on 10/30/2022 2:15 PM PST Approved by: Sean Solorio MD on 10/30/2022 2:15 PM PST Station ID: [id number]
--- NOTE | 2022-10-30 14:33 | ED Physician Documentation ---
PD HPI MALE - Stated complaint Stated Complaint: MALE - Chief complaint Chief Complaint: Abd Pain - History obtained from History obtained from: Patient - Additional information Additional information: 52-year-old gentleman with history of deafness. He is bisexual and has frequent partners of both genders with both anal receptive and other types of sex. For the last 2 to 3 days he has had increasing right testicular pain and noted blood in the semen. He estimates he has had 30 partners in the last year. History done with the aid of the [employer] interpreter tablet. Review of Systems Constitutional: denies: Fever, Chills Cardiac: denies: Chest pain / pressure, Palpitations Respiratory: denies: Dyspnea, Cough PD PAST MEDICAL HISTORY - Past Medical History Cardiovascular: Hypertension Respiratory: Sleep apnea, CPAP use Neuro: None Endocrine/Autoimmune: Type 2 diabetes GI: GERD : Kidney stones HEENT: Chronic hearing loss Psych: None Musculoskeletal: Chronic back pain, Other Derm: Eczema - Past Surgical History Past Surgical History: Yes General: Cholecystectomy, Other Ortho: Carpal Tunnel surgery HEENT: Myringotomy (tubes) - Present Medications Home Medications: Ambulatory Orders Medication Instructions Recorded Confirmed Ibuprofen [Motrin] 800 mg PO Q8H PRN #30 tablet 02/19/21 Oxycodone HCl/Acetaminophen 1 each PO Q6H PRN #14 tablet 09/05/22 [Percocet 5-325 mg Tablet] predniSONE [Deltasone] 20 mg PO [id number] #21 tab 09/05/22 Ciprofloxacin HCl [Cipro] 500 mg PO BID #20 tablet 10/30/22 Emtricitabine/Tenofovir (Tdf) 1 each PO DAILY #30 tablet 10/30/22 [Emtricitabine-Tenofv 200-300Mg] - Allergies Allergies/Adverse Reactions: Allergies Allergy/AdvReac Type Severity Reaction Status Date / Time cefaclor [From Ceclor] Allergy Unknown Rash Verified 10/30/22 12:28 codeine [Codeine] Allergy Unknown unknown Verified 10/30/22 12:28 Sulfa (Sulfonamide Allergy Unknown unknown Verified 10/30/22 12:28 Antibiotics) - Social History Does the pt smoke?: No Smoking Status: Never smoker Does the pt drink ETOH?: Yes Does the pt have substance abuse?: Yes - Immunizations Immunizations are current?: No Immunizations: TDAP >10years/unknown - POLST Patient has POLST: No PD ED PE NORMAL - Vitals Vital signs reviewed: Yes - General General: Alert and oriented X 3, No acute distress - Abdomen Abdomen: Soft, Non tender - Neuro Neuro: Alert and oriented X 3, Normal speech Results - Vitals Vitals: Vital Signs - 24 hr 10/30/22 12:30 Temperature 36.5 C Heart Rate 75 Respiratory 16 Rate Blood Pressure 147/92 H O2 Saturation 98 Oxygen O2 Source Room air PD Medical Decision Making - ED course ED course: 52-year-old gentleman with multiple sexual partners both genders presents with epididymitis. I did not presumptively treat for STDs noting cephalosporin allergy pending gonorrhea testing. He is very interested in PrEP and I am willing to prescribe a first month pending follow-up. Departure - Departure Disposition: 01 Home, Self Care Clinical Impression: Epididymitis Condition: Good Record reviewed to determine appropriate education?: Yes Instructions: ED Epididymitis Prescriptions: Ciprofloxacin HCl [Cipro] 500 mg PO BID #20 tablet Emtricitabine/Tenofovir (Tdf) [Emtricitabine-Tenofv 200-300Mg] 1 each PO DAILY #30 tablet Comments: You were seen for today for epididymitis. I am prescribing antibiotics for this. We are running STD tests, if this changes the need for specific antibiotics we will call you. You have also expressed interest in PrEP. I have prescribed the usual regimen for the first month, you need to follow-up with your family doctor in the meantime for refills and other counseling. Return for new or worsening symptoms.
[2022-10-30 22:32] LABS: CHLAMYDIA TRACHOMATIS DNA NEGATIVE (NEGATIVE); NEISSERIA GONORRHOEAE DNA NEGATIVE (NEGATIVE)
--- NOTE | 2022-10-31 15:52 | ED Physician Documentation ---
ED Addendum - Addendum Addendum: 10/31/22 15:51 Patient called in, he has an allergy to Cipro. He forgot to mention this yesterday. I sent a prescription for doxycycline 100 mg p.o. twice daily #20 to the pharmacy of his choice.
== END 2022-10-30 14:55 | disposition home or self-care (01) ==
LOC: ED 12:24
DX: N45.1 Epididymitis (principal); E11.9 Type 2 diabetes mellitus without complications
CPT/HCPCS: 87491; 87591; 87661; 93975; 99284

== ENCOUNTER 2023-04-13 10:16 | Outpatient (CLI) | payer MEDICARE, MEDICAID ==
--- NOTE | 2023-04-13 10:53 | SLEEP CARE CONSULTATION ---
Information from patient questionnaire entered by Darell Deutsch. I have reviewed and concur with the information entered by Darell Deutsch. This document represents the service I personally performed and the decisions made by me, Thomas Duncan MD, [facility]. History of Present Illness Service Date and Time: 04/13/2023 1016 Previous diagnosis: Severe, Obstructive Sleep Apnea-Hypopnea Syndrome AHI: 43.2 (in 2019)(34.4 in 2010) Reason for follow up: annual (LAST SEEN 03/2021) Equipment type: BiPAP ([facility]) Equipment obtained from: [employer] Mask style: Nasal pillows Prior sleep studies: Yes Year and Where: 2018 - [facility] and 2010 ([place]) HPI additional information: Mr. Alanis returned today for follow up of BiPAP therapy. The clinic visit was conducted with an online appeals referee and his mother. He was diagnosed to have severe obstructive sleep apnea-hypopnea syndrome. The patient gets his supplies from [employer]. He continues to use the device nightly and all through the night. He wears the [employer] nasal pillows. The compliance report shows usage in 173 nights out of the past 180 nights, averaging 5.9 hours a night. He complained of dry mouth. He already has the heated humidifier set at maximum. He thinks that the pressure of 16/10 cmH2O is comfortable (lowered from 20/14 cmH2O). On the BiPAP therapy he notices improvement in his sleep quality, and that he wakes up feeling fresher in the morning and more awake/alert during the day. The [place] Sleepiness Scale score 11 (was 5). The average residual AHI is now 6.1 (was 12.3 last year); and average time in large leak per day is 2.8 hours. Sleep Study - Results Prior sleep studies: Yes Year and Where: 2018 - [facility] and 2010 ([place]) CPAP Compliance Data - Data Reviewed with Patient Average duration of nightly device use: 5HRS 57MINS 37SECS Compliance rate %: 91.1 (10/11/22-04/08/23) Current pressure setting (cmH2O): 10-16 Average residual AHI: 6.1 Subjective Initial [place] Sleepiness Scale score: 13 (in 2010) Current [place] Sleepiness Scale score: 11 (04/13/23) Allergies and Home Medications Drug allergies reviewed: Yes Home medication list reviewed: Yes Allergy and home medication list: Allergies cefaclor [From Ceclor] Allergy (Unknown, Verified 04/10/23 09:30) Rash codeine [Codeine] Allergy (Unknown, Verified 04/10/23 09:30) unknown Sulfa (Sulfonamide Antibiotics) Allergy (Unknown, Verified 04/10/23 09:30) unknown ciprofloxacin Allergy (Verified 04/10/23 09:30) Unknown Review of Systems Review of systems same as previous: Yes Physical Exam Vital signs obtained and entered by: DARELL Whitley MA Blood Pressure: 126/68 (LEFT ARM) Cuff size: regular Heart Rate: 80 O2 Saturation: 94 Height: 5 ft 11 in Weight: 336 lb Body Mass Index: 46.8 BMI Classification: Morbidly Obese Impression and Plan IMPRESSION: 1. Obstructive Sleep Apnea-Hypopnea Syndrome, severe, with the patient doing well on BiPAP therapy. He has good compliance and significant clinical improvement. The current high pressure appears quite effective. No adjustment is necessary today. PLAN: 1. Leave BiPAP at 16/10 cmH2O. 2. Try to lose weight. 3. Prescription made for BiPAP supplies through [employer]. He would like to try a Young-[employer]kel Akira nasal mask. 4. Return for follow up in a year or earlier if there is any problem. Counseling Topics: Weight control Prescriptions: Device supplies Follow up with Sleep Care in: 1 year Visit Type: In Office Other Participants: Other (mother and vp customer development) Time Spent with Patient (minutes): 15 Provider Statement: I spent 100% of the Face to Face Visit with the patient with greater than 50% spent counseling the patient and coordination of care.
[2023-04-13 11:00] VITALS: BP 126/68
== END 2023-04-13 10:17 | disposition home or self-care (01) ==
LOC: SC 10:16
PROVIDERS: ATTEND Internal Medicine Pulmonary Disease
DX: G47.33 Obstructive sleep apnea (adult) (pediatric) (principal); E66.01 Morbid (severe) obesity due to excess calories; Z68.42 Body mass index [BMI] 45.0-49.9, adult
CPT/HCPCS: 99212; G0463